=== PATIENT | male | born 1950 | race Caucasian/White ===

== ENCOUNTER 2020-01-06 11:53 | Emergency (ER) | payer MEDICARE ==
[~2020-01-06] VITALS: Ht 177.8 cm; Wt 104.3 kg
--- NOTE | 2020-01-06 13:26 | NUR ---
crow dc'd; 25cc of water removed. dr. gibbs informed
[2020-01-06 13:39] LABS: BASOPHILS % 0.4 % (0.0-1.0); EOSINOPHILS # (AUTO) 0.3 (0.0-0.4); EOSINOPHILS % 2.7 % (0.0-6.0); HEMATOCRIT 41.5 % (38.2-49.6); HEMOGLOBIN 13.7 g/dL (14.0-18.0); LYMPHOCYTES # (AUTO) 1.3 (1.0-3.2); LYMPHOCYTES % 13.4 % (18.0-39.1); MEAN CORPUSCULAR HEMOGLOBIN 28.6 pg (28-32); MEAN CORPUSCULAR VOLUME 86.6 fL (81-99); MONOCYTES # (AUTO) 0.8 (0.2-0.8); MONOCYTES % 8.6 % (4.4-11.3); NEUTROPHILS # (AUTO) 7.3 (2.1-6.9); NEUTROPHILS % 74.3 % (38.7-80.0); PLATELET COUNT 257 x10e3/uL (140-360); RED BLOOD COUNT 4.79 x10e6/uL (4.3-5.7)
[2020-01-06 13:41] LABS: ALANINE AMINOTRANSFERASE 14 IU/L (0-55); ALBUMIN 3.5 g/dL (3.5-5.0); ALBUMIN/GLOBULIN RATIO 1.1 (0.8-2.0); ALKALINE PHOSPHATASE 50 IU/L (40-150); ANION GAP 16.1 mmol/L (8-16); BLOOD UREA NITROGEN 13 mg/dL (7-26); BUN/CREATININE RATIO 14 (6-25); CALCIUM 9.1 mg/dL (8.4-10.2); CARBON DIOXIDE 22 mmol/L (22-29); CHLORIDE 105 mmol/L (98-107); CREATININE, SERUM 0.96 mg/dL (0.72-1.25); EST GLOMERULAR FILTRATION RATE > 60 ML/MIN (60-); GLUCOSE 92 mg/dL (74-118); POTASSIUM 4.1 mmol/L (3.5-5.1); SODIUM 139 mmol/L (136-145)
--- NOTE | 2020-01-06 14:10 | Emergency Department Note ---
History of Present Illnes History of Present Illness Chief Complaint: Genitourinary History of Present Illness This is a 69 year old male c/o urinary retention/inability to urinate x 1 week went to [facility] who placed maria catheter and has went back 4 times for same issue states maria was readjusted 6 times at [facility] states he does not have urologist c/o pain when urinating and states urine comes out very slowly and states he has urinated blood clots. Historian: Patient Arrival Mode: Car Medical Radiation Therapist Required: No Onset (how long ago): week(s) Location: bladder Quality: clogged maria Severity: moderate Onset quality: gradual Duration (how long): day(s) Timing of current episode: intermittent, sporadic Progression: worsening Chronicity: recurrent Relieving factors: none Exacerbating factors: none Associated symptoms: Reports denies other symptoms Treatments prior to arrival: none Past Medical/Family History Physician Review I have reviewed the patient's past medical and family history. Any updates have been documented here. Past Medical History Recent Fever: No Clinical Suspicion of Infectio: No New/Unexplained Change in Ment: No Past Medical History: Hypertension, Hyperlipedemia Other Medical History: enlarged prostate Other Surgery: 2 prostate biopsies Social History Physically hurt or threatened: No Review of Systems Review of Systems Constitutional: Reports no symptoms EENTM: Reports no symptoms Cardiovascular: Reports no symptoms Respiratory: Reports no symptoms Gastrointestinal: Reports no symptoms Genitourinary: Reports no symptoms, Reports hematuria, Reports other (Urinary retention) Musculoskeletal: Reports no symptoms Integumentary: Reports no symptoms Neurological: Reports no symptoms Psychological: Reports no symptoms Endocrine: Reports no symptoms Hematological/Lymphatic: Reports no symptoms Review of other systems: All other systems negative Physical Exam Related Data Allergies: Coded Allergies: No Known Allergies (Unverified , 01/06/20) Triage Vital Signs Vital Signs Date Time Temp Pulse Resp B/P (MAP) Pulse Ox O2 Delivery O2 Flow Rate FiO2 01/06/20 12:19 98.3 69 18 135/79 98 Room Air Vital signs reviewed: Yes Physical Exam CONSTITUTIONAL Constitutional: Present well-developed, Present well-nourished HENT HENT: Present normocephalic, Present atraumatic, Present oropharynx clear/moist, Present nose normal HENT L/R: Present left ext ear normal, Present right ext ear normal EYES Eyes: Reports PERRL, Reports conjunctivae normal NECK Neck: Present ROM normal PULMONARY Pulmonary: Present effort normal, Present breath sounds normal CARDIOVASCULAR Cardiovascular: Present regular rhythm, Present heart sounds normal, Present capillary refill normal, Present normal rate GASTROINTESTINAL Abdominal: Present soft, Present nontender, Present bowel sounds normal GENITOURINARY Genitourinary: Present other (Maria in place with balloon inflated to 25mL. Blood noted in maria tubing) SKIN Skin: Present warm, Present dry MUSCULOSKELETAL Musculoskeletal: Present ROM normal NEUROLOGICAL Neurological: Present alert, Present oriented x 3, Present no gross motor or sensory deficits PSYCHOLOGICAL Psychological: Present mood/affect normal, Present judgement normal Results Laboratory Result Diagram: 01/06/20 1232 01/06/20 1232 Laboratory Laboratory Tests Test 01/06/20 13:23 01/06/20 12:32 White Blood Count 9.76 x10e3/uL (4.8-10.8) Red Blood Count 4.79 x10e6/uL (4.3-5.7) Hemoglobin 13.7 g/dL (14.0-18.0) Hematocrit 41.5 % (38.2-49.6) Mean Corpuscular Volume 86.6 fL (81-99) Mean Corpuscular Hemoglobin 28.6 pg (28-32) Mean Corpuscular Hemoglobin Concent 33.0 g/dL (31-35) Red Cell Distribution Width 13.0 % (11.7-14.4) Platelet Count 257 x10e3/uL (140-360) Neutrophils (%) (Auto) 74.3 % (38.7-80.0) Lymphocytes (%) (Auto) 13.4 % (18.0-39.1) Monocytes (%) (Auto) 8.6 % (4.4-11.3) Eosinophils (%) (Auto) 2.7 % (0.0-6.0) Basophils (%) (Auto) 0.4 % (0.0-1.0) Neutrophils # (Auto) 7.3 (2.1-6.9) Lymphocytes # (Auto) 1.3 (1.0-3.2) Monocytes # (Auto) 0.8 (0.2-0.8) Eosinophils # (Auto) 0.3 (0.0-0.4) Basophils # (Auto) 0.0 (0.0-0.1) Absolute Immature Granulocyte (auto 0.06 x10e3/uL (0-0.1) Sodium Level 139 mmol/L (136-145) Potassium Level 4.1 mmol/L (3.5-5.1) Chloride Level 105 mmol/L (98-107) Carbon Dioxide Level 22 mmol/L (22-29) Anion Gap 16.1 mmol/L (8-16) Blood Urea Nitrogen 13 mg/dL (7-26) Creatinine 0.96 mg/dL (0.72-1.25) Estimat Glomerular Filtration Rate > 60 ML/MIN (60-) BUN/Creatinine Ratio 14 (6-25) Glucose Level 92 mg/dL (74-118) Calcium Level 9.1 mg/dL (8.4-10.2) Total Bilirubin 0.5 mg/dL (0.2-1.2) Aspartate Amino Transf (AST/SGOT) 15 IU/L (5-34) Alanine Aminotransferase (ALT/SGPT) 14 IU/L (0-55) Alkaline Phosphatase 50 IU/L (40-150) Total Protein 6.8 g/dL (6.5-8.1) Albumin 3.5 g/dL (3.5-5.0) Globulin 3.3 g/dL (2.3-3.5) Albumin/Globulin Ratio 1.1 (0.8-2.0) Lab results reviewed: Yes Imaging Imaging results reviewed: Yes Diagnostics Tests Diagnostic test(s) reviewed: Yes Assessment & Plan Medical Decision Making MDM 69 y.o M w/ obstructed urinary catheter. Maria balloon was over inflated and this was removed. He was able to urinate with out difficulty. Exam shows overall well appearing M in NAD, VSS and within acceptable limits. Urine shows some bacteria and RBC's. Will treat as UTI and give Keflex. He will f/u w/ Urology outpatient. Patient states agreement to plan and is appropriate for DC. Reassessment Reassessment time: 14:09 Reassessment Well appearing. NAD Assessment & Plan Final Impression: (1) Obstructed Maria catheter Depart Disposition: HOME, SELF-CARE Last Vital Signs Date Time Temp Pulse Resp B/P (MAP) Pulse Ox O2 Delivery O2 Flow Rate FiO2 01/06/20 12:19 98.3 69 18 135/79 98 Room Air Home Meds Active Scripts Cephalexin Monohydrate (KEFLEX) 500 Mg Capsule, 500 MG PO BID for 10 Days, #20 Prov:KALANI JADE MD 01/06/20 KALANI JADE MD Jan 06, 2020 14:10
[2020-01-06 14:12] LABS: BILIRUBIN,URINE MODERATE (NEGATIVE); CLARITY,URINE CLOUDY (CLEAR); COLOR,URINE AMBER (YELLOW); KETONES,URINE 2+ (NEGATIVE); LEUKOCYTE ESTERASE ,URINE TRACE (NEGATIVE); NITRITE,URINE NEGATIVE (NEGATIVE); PROTEIN,URINE DIPSTICK >=300 (NEGATIVE); URINE UROBILINOGEN 1 mg/dL (0.2 - 1)
[2020-01-06 14:15] LABS: BACTERIA,URINE MODERATE /HPF; RBC,URINE >50 /HPF (0-5)
--- NOTE | 2020-01-06 14:46 | NUR ---
p.v.r. done; no urine
[2020-01-06] MEDS ORDERED: KEFLEX500 MG PO (15:02)
== END 2020-01-06 15:30 | disposition home or self-care (01) ==
LOC: ER 12:25
DX: T83.098A Other mechanical complication of other urinary catheter, initial encounter (principal); R31.9 Hematuria, unspecified; I10 Essential (primary) hypertension; E78.5 Hyperlipidemia, unspecified
CPT/HCPCS: 36415; 80053; 81001; 85025; 87086; 87186; 99284

== ENCOUNTER 2020-01-20 18:23 | Emergency (ER) | payer MEDICARE ==
[~2020-01-20] VITALS: Ht 177.8 cm; Wt 103.0 kg
[~2020-01-20 18:23] MED LIST: KEFLEX500 MG PO
--- NOTE | 2020-01-20 19:18 | Emergency Department Note ---
History of Present Illnes History of Present Illness Chief Complaint: Genitourinary History of Present Illness This is a 70 year old male PRESENTS WITH C/O HEMATURIA FOR PAST 3 TO 4 HOURS, THIS HAS HAPPENED BEFORE IN THE PAST WELL, PT STATES HAS PROSTATE ISSUES AND HIS UROLOGIST IS PLANNING TO DO A PROCEDURE ON HIS PROSTATE SOON.. Historian: Patient Arrival Mode: Car Onset (how long ago): hour(s) (4) Location: PENIS Quality: BLOOD IN URINE, MILD PAIN WITH URINATION Radiation: Reports non-radiation Severity: mild Onset quality: sudden Duration (how long): hour(s) (4) Timing of current episode: constant Chronicity: recurrent Context: Denies recent illness, Denies recent surgery, Denies trauma/injury Relieving factors: none Exacerbating factors: none Associated symptoms: Reports other (MILD DYSURIA) Treatments prior to arrival: none Past Medical/Family History Physician Review I have reviewed the patient's past medical and family history. Any updates have been documented here. Past Medical History Recent Fever: No Clinical Suspicion of Infectio: No New/Unexplained Change in Ment: No Past Medical History: Hypertension, Hyperlipedemia Other Medical History: enlarged prostate Other Surgery: 2 prostate biopsies Social History Smoking Cessation: Never Smoker Alcohol Use: None Any Illegal Drug Use: No Family History Family history of heart diseas: No Review of Systems Review of Systems Constitutional: Reports no symptoms EENTM: Reports no symptoms Cardiovascular: Reports no symptoms Respiratory: Reports no symptoms Gastrointestinal: Reports no symptoms Genitourinary: Reports as per HPI Musculoskeletal: Reports no symptoms Integumentary: Reports no symptoms Neurological: Reports no symptoms Psychological: Reports no symptoms Endocrine: Reports no symptoms Hematological/Lymphatic: Reports no symptoms Physical Exam Related Data Allergies: Coded Allergies: No Known Allergies (Unverified , 01/06/20) Triage Vital Signs Vital Signs Date Time Temp Pulse Resp B/P (MAP) Pulse Ox O2 Delivery O2 Flow Rate FiO2 01/20/20 18:34 98.1 68 16 122/71 99 Room Air Vital signs reviewed: Yes Physical Exam CONSTITUTIONAL Constitutional: Present well-developed, Present well-nourished; Absent distressed HENT HENT: Present normocephalic, Present atraumatic, Present oropharynx clear/moist, Present nose normal HENT L/R: Present left ext ear normal, Present right ext ear normal EYES Eyes: Reports PERRL, Reports conjunctivae normal NECK Neck: Present ROM normal PULMONARY Pulmonary: Present effort normal, Present breath sounds normal CARDIOVASCULAR Cardiovascular: Present regular rhythm, Present heart sounds normal, Present capillary refill normal, Present normal rate GASTROINTESTINAL Abdominal: Present soft, Present nontender, Present bowel sounds normal GENITOURINARY Genitourinary: Present exam deferred SKIN Skin: Present warm, Present dry MUSCULOSKELETAL Musculoskeletal: Present ROM normal NEUROLOGICAL Neurological: Present alert, Present oriented x 3, Present no gross motor or sensory deficits PSYCHOLOGICAL Psychological: Present mood/affect normal, Present judgement normal Results Laboratory Laboratory Laboratory Tests Test 01/20/20 19:45 01/20/20 18:07 White Blood Count 12.32 x10e3/uL (4.8-10.8) Red Blood Count 4.46 x10e6/uL (4.3-5.7) Hemoglobin 12.5 g/dL (14.0-18.0) Hematocrit 38.9 % (38.2-49.6) Mean Corpuscular Volume 87.2 fL (81-99) Mean Corpuscular Hemoglobin 28.0 pg (28-32) Mean Corpuscular Hemoglobin Concent 32.1 g/dL (31-35) Red Cell Distribution Width 13.4 % (11.7-14.4) Platelet Count 245 x10e3/uL (140-360) Neutrophils (%) (Auto) 74.0 % (38.7-80.0) Lymphocytes (%) (Auto) 15.3 % (18.0-39.1) Monocytes (%) (Auto) 7.1 % (4.4-11.3) Eosinophils (%) (Auto) 2.7 % (0.0-6.0) Basophils (%) (Auto) 0.5 % (0.0-1.0) Neutrophils # (Auto) 9.1 (2.1-6.9) Lymphocytes # (Auto) 1.9 (1.0-3.2) Monocytes # (Auto) 0.9 (0.2-0.8) Eosinophils # (Auto) 0.3 (0.0-0.4) Basophils # (Auto) 0.1 (0.0-0.1) Absolute Immature Granulocyte (auto 0.05 x10e3/uL (0-0.1) Sodium Level 139 mmol/L (136-145) Potassium Level 4.1 mmol/L (3.5-5.1) Chloride Level 105 mmol/L (98-107) Carbon Dioxide Level 23 mmol/L (22-29) Anion Gap 15.1 mmol/L (8-16) Blood Urea Nitrogen 14 mg/dL (7-26) Creatinine 0.99 mg/dL (0.72-1.25) Estimat Glomerular Filtration Rate > 60 ML/MIN (60-) BUN/Creatinine Ratio 14 (6-25) Glucose Level 97 mg/dL (74-118) Calcium Level 9.2 mg/dL (8.4-10.2) Urine Color Yellow (YELLOW) Urine Clarity Turbid (CLEAR) Urine pH 5.5 (5 - 7) Urine Specific [place] 1.030 (1.010-1.025) Urine Protein >=300 (NEGATIVE) Urine Glucose (UA) Negative (NEGATIVE) Urine Ketones Negative (NEGATIVE) Urine Blood Large (NEGATIVE) Urine Nitrite Negative (NEGATIVE) Urine Bilirubin Small (NEGATIVE) Urine Urobilinogen 1 mg/dL (0.2 - 1) Urine Leukocyte Esterase Small (NEGATIVE) Urine RBC >50 /HPF (0-5) Urine WBC >50 /HPF (0-5) Urine Epithelial Cells Few /LPF (NONE) Urine Bacteria Few /HPF (NONE) Lab results reviewed: Yes Assessment & Plan Medical Decision Making MDM PT WITH HEMATURIA AND MILD DYSURIA CBC, BMP, UA ORDERED TO EVAL FOR LEUKOCYTOSIS, ANEMIA, ELECTROLYTE ABNORMALITY, RENAL FAILURE, UTI, HEMATURIA PT FOUND TO HAVE UTI ROCEPHIN 1 GRAM IV ORDERED PT DISCHARGED WITH PRESCRIPTION FOR OMNICEF 300 MG PO BID FOR 10 DAYS #20 Assessment & Plan Final Impression: (1) Urinary tract infection in male Depart Disposition: HOME, SELF-CARE Last Vital Signs Date Time Temp Pulse Resp B/P (MAP) Pulse Ox O2 Delivery O2 Flow Rate FiO2 01/20/20 18:34 98.1 68 16 122/71 99 Room Air Home Meds Active Scripts Cephalexin Monohydrate (KEFLEX) 500 Mg Capsule, 500 MG PO BID for 10 Days, #20 Prov:KALANI JADE MD 01/06/20 ELY JHAVERI MD Jan 20, 2020 19:18
--- OUTSIDE RECORDS SUMMARY | 2020-01-20 19:29 | XMS REPORT | Clinical Summary ---
Author Author [facility] Organization [facility] Address Unknown Phone Unavailable Care Team Providers Care Tug Master Name Role Phone Angela Briones Physician PCP [phone] Allergies Comments Active Allergy Reactions Severity Noted Date Pt. States it causes upset stomach Aspirin Nausea Only High 05/27/2010 Medications End Date Status Medication Sig Dispensed Refills Start Date Active Tadalafil (CIALIS) 10 mg One tab 30 tablet 3 0 tabletIndications: BPH orally every 8 associated with nocturia other day.. Active cetirizine (ZYRTEC) 10 mg Take 1 tablet 90 tablet 3 tabletIndications: by mouth 9 Environmental and daily. seasonal allergies Additional Information Patient not taking. Reported on 07/08/2019 2:42 PM Active omeprazole (PRILOSEC) 20 Take 1 90 capsule 3 0 mg delayed release capsule by 9 capsuleIndications: mouth daily. Gastroesophageal reflux disease without esophagitis Active ketoconazole (NIZORAL) 2 Use on scalp 120 mL 3 % shampooIndications: 2-3 0 Seborrheic dermatitis, times/week.. unspecified Active atorvastatin (LIPITOR) 20 Take 1 tablet 90 tablet 3 mg tabletIndications: by mouth at 0 Mixed hyperlipidemia bedtime nightly. Active lisinopriL (PRINIVIL) 5 Take 1 tablet 90 tablet 3 mg tabletIndications: by mouth 0 Essential hypertension daily. Active tamsulosin (FLOMAX) 0.4 Take 1 90 capsule 3 mg extended release capsule by 0 capsuleIndications: BPH mouth daily. associated with nocturia Active finasteride (PROSCAR) 5 Take 1 tablet 90 tablet 3 mg tabletIndications: BPH by mouth 0 associated with nocturia daily. 07/13/2020 Active primidone (MYSOLINE) 50 Take 1 tablet 120 tablet 6 mg tabletIndications: by mouth 4 0 Essential tremor times daily for 210 days Please take 50 mg, and increase weekly by 25 mg up till maximum dose of 250 nightly achieved. Active oxybutynin (DITROPAN) 5 Take 1 tablet 30 tablet 0 mg tabletIndications: by mouth 3 0 Bladder spasms times daily. 02/24/2019 Discontinued (Reorder) omeprazole (PRILOSEC) 20 Take 1 90 capsule 3 1 mg delayed release capsule by 7 capsuleIndications: mouth daily. Gastroesophageal reflux disease without esophagitis 10/21/2019 Discontinued (Reorder) atorvastatin (LIPITOR) 20 Take 1 tablet 90 tablet 3 mg tabletIndications: by mouth at 8 Dyspnea on exertion bedtime nightly. 02/24/2019 Discontinued (Reorder) cetirizine (ZYRTEC) 10 mg Take 1 tablet 90 tablet 1 tabletIndications: by mouth 8 Environmental and daily. seasonal allergies 08/08/2019 Discontinued (Therapy comple jamee) ketoconazole (NIZORAL) 2 apply 30 g 1 0 % topical topically to 8 creamIndications: affected Onychomycosis areas feet once daily. 08/08/2019 Discontinued (Therapy comple jamee) ciprofloxacin HCl (CIPRO) Take 500 mg 0 04/05 500 mg tablet by mouth 2 8 times daily. 10/21/2019 Discontinued (Reorder) lisinopril (PRINIVIL) 5 Take 1 tablet 90 tablet 3 mg tabletIndications: by mouth 9 Essential hypertension daily. 11/14/2019 Discontinued (Therapy comple jamee) polyethylene glycol Add lukewarm 8000 mL 0 09/23 (GOLYTELY) 236-22.74-6.74 drinking 9 -5.86 gram oral water to the solutionIndications: fill pacheco (4 History of adenomatous liters) and polyp of colon shake. Drink as directed by your doctor.. 11/14/2019 Discontinued (Therapy comple jamee) polyethylene glycol drink 2L 8000 mL 0 (GAVILYTE-G) between 9 236-22.74-6.74 -5.86 gram 6pm-8pm oral solution evening before test .drink the other 2L morning of test starting 4 hours before test and finish in 2 hours 07/08/2019 Discontinued (Reorder) tamsulosin (FLOMAX) 0.4 Take 1 90 capsule 3 mg extended release capsule by 9 capsuleIndications: BPH mouth daily. associated with nocturia 07/08/2019 Discontinued (Error) tamsulosin (FLOMAX) 0.4 Take 1 90 capsule 4 202 mg extended release capsule by 0 capsuleIndications: mouth daily. Nocturia 07/08/2019 Discontinued (Error) finasteride (PROSCAR) 5 Take 1 tablet 90 tablet 4 202 mg tabletIndications: by mouth 0 Nocturia daily. 10/21/2019 Discontinued (Reorder) tamsulosin (FLOMAX) 0.4 Take 1 90 capsule 3 202 mg extended release capsule by 0 capsuleIndications: BPH mouth daily. associated with nocturia 10/21/2019 Discontinued (Reorder) finasteride (PROSCAR) 5 Take 1 tablet 90 tablet 3 mg tabletIndications: by mouth 0 Nocturia daily. 11/14/2019 Discontinued (Reorder) predniSONE (DELTASONE) 50 Take 1 tablet 12 tablet 0 202 mg tabletIndications: by mouth 2 0 Chronic pain of left knee times daily for 6 days. 11/14/2019 Discontinued (Reorder) predniSONE (DELTASONE) 50 Take 1 tablet 12 tablet 0 202 mg tabletIndications: by mouth 2 0 Chronic pain of left knee times daily for 6 days. 11/20/2019 predniSONE (DELTASONE) 50 Take 1 tablet 12 tablet 0 202 mg tabletIndications: by mouth 2 0 Chronic pain of left knee times daily for 6 days. 12/16/2019 Discontinued (Dose adjustmen t) primidone (MYSOLINE) 50 Take 1 tablet 30 tablet 6 mg tabletIndications: by mouth at 0 Essential tremor bedtime nightly for 210 days. 12/30/2019 Discontinued (Duplicate Orde r) traMADoL (ULTRAM) 50 mg Take 1 tablet 15 tablet 0 tabletIndications: by mouth 0 Retention of urine, Lower every 6 hours abdominal pain as needed for Pain. 12/30/2019 Discontinued (Alternate ther apy) traMADoL (ULTRAM) 50 mg Take 1 tablet 15 tablet 0 tabletIndications: by mouth 0 Retention of urine, Lower every 6 hours abdominal pain as needed for Pain. Active Problems Problem Noted Date Benign prostatic hyperplasia with urinary frequency 08/08/2019 Nocturia 06/17/2019 Hx: UTI (urinary tract infection) 07/24/2018 Prediabetes 07/24/2018 Dietary counseling 07/24/2018 Positive occult stool blood test 11/29/2017 BMI 33.0-33.9,adult 11/23/2017 Elevated PSA 09/23/2013 Benign essential tremor 10/07/2012 Alcohol dependence 03/12/2012 CHF (congestive heart failure) 06/07/2009 HTN (hypertension) 06/07/2009 Retention of urine Urinary outflow obstruction Bladder spasms Indwelling Lambert catheter present Encounters Care Team Description Date Type Specialty Dee James PA Godoy, Guilherme, MD Hsieh, Alan, ResidentMD Retention of urine 01/19/2020 Office Visit Urology Velia King MD Bladder spasms (Primary Dx); Indwelling Lambert catheter present; Constipation, unspecified constipation type 01/05/2020 Emergency Emergency Medicine Irish Lux MD Urinary retention (Primary Dx) 01/02/2020 Emergency Emergency Medicine Prosper Fuentes MD Urinary outflow obstruction (Primary Dx) ; Lambert catheter problem, sequela; Benign prostatic hyperplasia with urinary frequency 12/31/2019 Emergency Emergency Medicine Joyce Gilbert ResidentMD 12/31/2019 Orders Only Urology Olga Lidia Lion NP Retention of urine (Primary Dx); Problem with Lambert catheter, initial encounter; Lower abdominal pain 12/30/2019 Emergency Emergency Medicine Constance Coppola MD Essential tremor (Primary Dx) 12/16/2019 Office Visit Neurology Jennifer Emery MD 11/27/2019 Hospital Radiology Encounter Jennifer Emery MD Chronic pain of left knee (Primary Dx); Skin lesions of back; Encounter to discuss test results; Dietary counseling for Above / Below Normal BMI; Exercise counseling for Above Normal BMI Only! 11/14/2019 Office Visit Family Practice Jennifer Emery MD 11/14/2019 Orders Only Family Practice Dinah William MD 11/04/2019 Ancillary Radiology Procedure 10/24/2019 Ancillary Radiology Procedure Jarrell Velarde PA Essential hypertension (Primary Dx); Prediabetes; BPH associated with nocturia; Neck mass; Chronic pain of both knees; Mixed hyperlipidemia 10/21/2019 Telephonic Family Practice Encounter Constance Coppola MD NO SHOW ENCOUNTER (Primary Dx) 10/21/2019 Telephonic Neurology Encounter Marylu Fulton RN 10/20/2019 Refill General Surgery Angela Briones, Essential hypertension (Primary Dx); Elevated PSA; BMI 33.0-33.9,adult; Dietary counseling; Prediabetes; Benign prostatic hyperplasia with urinary frequency; Seborrheic dermatitis, unspecified 08/08/2019 Office Visit Family Practice Jesusita Aggarwal PA Nocturia (Primary Dx); Elevated PSA; BPH with obstruction/lower urinary tract symptoms; Gastroesophageal reflux disease without esophagitis; BPH associated with nocturia 07/08/2019 Office Visit Urology Angela Briones Physician Nocturia (Primary Dx); Encounter for vaccination; Dietary counseling for Above / Below Normal BMI; Exercise counseling for Above Normal BMI Only!; Elevated PSA; Essential hypertension; Suprapubic pain; Tremors of nervous system; Mass in neck 06/17/2019 Office Visit [facility] Angela Briones, Physician Medications 02/24/2019 Orders Only [facility] Chante Prather MD 01/23/2019 Anesthesia Gastroenterology Event Angela Briones, Deepthi Gallardo MD 01/23/2019 Hospital Encounter after 01/19/2019 Immunizations Name Administration Dates Next Due Herpes Zoster Vaccine In 03/05/2015 Clinic Influenza Vaccine 03/12/2013, 03/12/2012, , 03/25/2009 Influenza, Injectable, 06/17/2019, 03/09/2017 Quadrivalent Influenza, 05/02/2018 Vaccine<FLUCELVAX>(Multi- Dose) PCV 13 (Pnuemococcal 11/29/2016 Conjugated 13 Valent) PPV 23 Pneumococcal 03/05/2015 Polysaccaride Tdap Tetanus, diphtheria, 11/04/2014 acellular pertussis Vaccine Family History Medical History Relation Name Comments Hypertension Father Stroke Father Cancer Mother Hypertension Other Patient Relation Name Status Comments Father Mother Other Sister Alive 1 Social History Date Tobacco Use Types Packs/Day Years Used Quit: 12/26/2012 Former Smoker Cigarettes Smokeless Tobacco: Never Used Tobacco Cessation: Counseling Given: Yes Comments: trying to quit Drinks/Week oz/Week Comments Alcohol Use 0 Standard drinks or equivalent 0.0 Former smoker--quit 20 13 No Food Insecurity Answer Date Recorded Within the past 12 months, you worried that your Never kashif e 06/27/2018 food would run out before you got money to buy more. Within the past 12 months, the food you bought Never true 06/27/2018 just didn't last and you didn't have mo helen to get more. Sex Assigned at Date Recorded Not on file Industry Job Start Date Occupation Not on file Not on file Not on file Travel End Travel History Travel Start No recent travel history available. Date Recorded COVID-19 Exposure Response 01/05/2020 11:34 AM CDT In the last month, have you been in contact with No / Unsure someone who was confirmed or suspected to have Coronavirus / COVID-19? Last Filed Vital Signs Reading Time Taken Comments Vital Sign 137/75 01/19/2020 8:08 AM CDT Blood Pressure 61 01/19/2020 8:08 AM CDT Pulse 36.5 C (97.7 F) 01/19/2020 8:08 AM CDT Temperature 18 01/19/2020 8:08 AM CDT Respiratory Rate 100% 01/05/2020 7:00 PM CDT Oxygen Saturation - - Inhaled Oxygen Concentration 103.4 kg (227 lb 14.4 oz) 01/19/2020 8:08 AM CDT Weight 175.3 cm (5' 9") 01/19/2020 8:08 AM CDT Height 33.65 01/19/2020 8:08 AM CDT Body Mass Index Plan of Treatment Care Team Description Date Type Specialty Linda Reeder, ResidentMD [address] [place] [address] 03/09/2020 Office Visit Neurology Health Maintenance Due Date Last Done Comments CORONARY ARTERY DISEASE 11/03/2020 11/04/2019, AGE 18 AND UP 06/17/2019, 12/26/2017, Additional history exists Colonoscopy 5yr 01/24/2024 01/23/2019 IMM Pneumococcal Age 65 Completed 11/29/2016, and Up 03/05/2015 Goals Goal Patient Associated Recent Progress Patient-Stat Aut hor Goal Type Problems ed? Eat Healthy Lifestyle No Rebeca Kessler PLACEMENT COORDINATOR Eat Healthy Lifestyle No Rebeca Kessler LVN Reduce pain Lifestyle Yes Rebeca Schroeder, Housemaid Eat Healthy Lifestyle Yes Rebeca Schroeder, Housemaid Procedures Comments Procedure Name Priority Date/Time Associated Diag nosis URINE CULTURE Routine 01/19/2020 Retention of ur ine 10:25 AM CDT CYSTOMETROGRAM, SIMPLE Routine 01/19/2020 Retenti on of urine 10:16 AM CDT BMP POC Routine 01/02/2020 5:59 AM CDT CREATININE POC Routine 01/02/2020 5:59 AM CDT HGB/HCT STAT 12/31/2019 5:36 PM CDT BMP POC Routine 12/31/2019 3:58 PM CDT BMP POC Routine 12/31/2019 3:[address] ABDOMEN AND PELVIS STAT 12/30/2019 Retentio n of urine CONTRAST 7:04 PM CDT BMP POC Routine 12/30/2019 5:06 PM CDT CREATININE POC Routine 12/30/2019 5:05 PM CDT CBC STAT 12/30/2019 4:57 PM CDT LIPASE STAT 12/30/2019 4:57 PM CDT LIVER PROFILE STAT 12/30/2019 4:57 PM CDT CBC/DIFF STAT 12/30/2019 4:57 PM CDT URINALYSIS STAT 12/30/2019 3:09 PM CDT URINALYSIS STAT 12/30/2019 3:09 PM CDT MRI KNEE JOINT W/O WILBUR 11/27/2019 Chronic sienna n of left knee CONTRAST 7:40 AM CDT XRAY KNEES-BILATERAL WT. Routine 11/04/2019 Chron ic pain of both BEARING (AP/LAT/SUN) 11:20 AM CDT knees HEMOGLOBIN A1C Routine 11/04/2019 Prediabetes 10:50 AM CDT PROSTATE SPECIFIC ANTIGEN Routine 11/04/2019 BPH associated with (PSA) 10:50 AM CDT nocturia LIPID PROFILE Routine 11/04/2019 Mixed hyperlipi demia 10:50 AM CDT COMPREHENSIVE METABOLIC Routine 11/04/2019 Essent ial hypertension PANEL 10:50 AM CDT Prediabetes Mixed hyperlipidemia U/S THYROID/NECK Routine 10/24/2019 Neck mass 7:49 AM CDT SIMPLE UROFLOWMETRY (UFR) Routine 07/08/2019 Noct uria (EG, STOP-WATCH FLOW 3:30 PM LABOR RELATIONS REPRESENTATIVE RATE, MECHANICAL UROFLOWMETER) URINE CULTURE Routine 06/17/2019 Nocturia 10:05 AM LABOR RELATIONS REPRESENTATIVE Suprapubic pain HEMOGLOBIN A1C Routine 06/17/2019 Essential hyper tension 10:05 AM LABOR RELATIONS REPRESENTATIVE LIPID PROFILE Routine 06/17/2019 Essential hyper tension 10:05 AM LABOR RELATIONS REPRESENTATIVE VIT D, 25-HYDROXY Routine 06/17/2019 Tremors of n ervous system 10:05 AM LABOR RELATIONS REPRESENTATIVE COMPREHENSIVE METABOLIC Routine 06/17/2019 Elevat ed PSA PANEL 10:05 AM LABOR RELATIONS REPRESENTATIVE THYROID STIMULATING Routine 06/17/2019 Mass in ne ck HORMONE (TSH) 10:05 AM LABOR RELATIONS REPRESENTATIVE PROSTATE SPECIFIC ANTIGEN Routine 06/17/2019 Noct uria (PSA) 10:05 AM LABOR RELATIONS REPRESENTATIVE Elevated PSA URINALYSIS Routine 06/17/2019 Nocturia 10:05 AM LABOR RELATIONS REPRESENTATIVE Suprapubic pain URINALYSIS Routine 06/17/2019 Nocturia 10:05 AM LABOR RELATIONS REPRESENTATIVE Suprapubic pain COLONOSCOPY Routine 01/23/2019 History of meghana omatous 3:07 PM CDT polyp of colon after 01/19/2019 Results * POCT CREATININE POC docked device (01/02/2020 5:59 AM CDT) Only the most recent of 2 results within the time period is included. Creatinine POC 0.8 0.6 - 1.3 mg/dL [facility] GFR, Estimated >90 >=90 mL/min/1.73 m2 [facility] Specimen Blood, venous Performing Organization Address [facility] one Number [facility] [address] [place] [address] LABORATORY * POCT BMP POC docked device (01/02/2020 5:59 AM CDT) Only the most recent of 4 results within the time period is included. Sodium POC 136 136 - 145 mmol/L [facility] Potassium POC 3.9 3.5 - 5.1 mmol/L [facility] Chloride POC 102 98 - 107 mmol/L [facility] TCO2 POC 27 21 - 32 mmol/L [facility] Urea Nitrogen 18 7 - 18 mg/dL [facility] Glucose POC 96 74 - 106 mg/dL [facility] Hemoglobin POC 13.9 12 - 16 g/dL [facility] Hematocrit POC 41.0 37.0 - 47.0 % [facility] Specimen Blood, venous Performing Organization Address [facility] one Number [facility] [address] [place] [address] [phone] LABORATORY * Hgb/Hct (12/31/2019 5:36 PM CDT) Hemoglobin 13.7 (L) 14.0 - 18.0 g/dL [facility] Hematocrit 41.4 40.0 - 54.0 % [facility] Specimen Blood Performing Organization Address [facility] one Number [facility] [address] [place], [place] [id number] * CT ABDOMEN AND PELVIS CONTRAST (12/30/2019 7:04 PM CDT) Specimen Impressions Performed At IMPRESSION: SMS 1. Lambert catheter positioned in the p rostatic urethra. Recommend repositioning. 2. Multiple stones within the bladder lumen. 3. Nonspecific bilateral perinephric fat stranding, likely due to recent passage of stone. No striated nephrograms. 4. Diverticulosis without acute diver ticulitis. 5. Prostatomegaly. If the report is "FINALIZED" it indicat es that the attending/staff radiologist has reviewed the images and agrees with the resident's interpretation. Dictated By: Alexandria Conroy DO, 12/30/19 8:14 PM I have reviewed the study and agree wit h the findings in this report. Signed By: Roxana Perkins MD, 12/30/2019 8 :26 PM Narrative Performed At EXAM: CT Abdomen and Pelvis WITH contrast SMS INDICATION: Abd distension EC Clinical Documentation: "69 year old CM with PMH HTN, CHF, Etoh abuse, BPH presenting for dribbling of urine, burning in urine and supra pubic pain since two days. He reports t hat he has not urinated since last night and is now having supra pubi c pain and nausea. Denies fever, chills, vomiting. Denies any other comp laints.?" COMPARISON: None available TECHNIQUE: Abdomen and pelvis were scan everton utilizing a multidetector helical scanner from the lung base to t he pubic symphysis after administration of IV contrast. Coronal and sagittal reformations were obtained. Routine protocol was performe d. Scan was performed when during portal venous phase. IV CONTRAST: 100 mL of Omnipaque 300 ORAL CONTRAST: None COMPLICATIONS: None RADIATION DOSE: Total DLP: 1062 mGy*cm Estimated effective dose: (DLP x 0.015 x size factor) mSv CTDIvol has been reviewed. It is below the limits set by the Radiation Protocol Committee (RPC). FINDINGS: LINES and TUBES: Lambert catheter tip pos itioned in the prosthetic urethra. LOWER THORAX: Unremarkable HEPATOBILIARY: No focal hepatic lesions. No biliary ductal dilation. GALLBLADDER: No radio-opaque stones or sludge. No wall thickening. SPLEEN: No splenomegaly. PANCREAS: No focal masses or ductal dil atation. Slight fatty atrophy. ADRENALS: No adrenal nodules KIDNEYS/URETERS: Kidneys enhance symmet rically. Bilateral cortical scarring. Nonspecific mild bilateral pe rinephric fat stranding, likely due to recent stone passage. No hydrone phrosis. No solid mass lesions. 3.7 cm simple cyst in the upper pole th e left kidney. Additional subcentimeter hypodensities in the left kidney are too small to characterize. No renal stones. GI TRACT: No abnormal distention, wall thickening, or evidence of bowel obstruction. Diverticulosis without e vidence of acute diverticulitis. Appendix is normal. PELVIC ORGANS/BLADDER: Multiple depende nt layering stones in the distended bladder lumen. The prostate g land is heterogeneous and enlarged. There are multiple prominent pelvic lymph nodes measuring up to 6 mm in short axis, none of which me et criteria for pathologic enlargement. LYMPH NODES: No peritoneal/retroperiton eal lymphadenopathy. VESSELS: Mild atherosclerosis of the ab dominal aorta and its major abdomen and pelvic branches. PERITONEUM / RETROPERITONEUM: No free a ir or fluid. BONES: Moderate degenerative changes of the thoracolumbar spine. Mild grade 1 retrolisthesis of L5 on S1 and L3 on L4. SOFT TISSUES: Unremarkable. Procedure Note Interface, Rad/Mammog In - 12/30/2019 8:31 PM CDT EXAM: CT Abdomen and Pelvis WITH contrast INDICATION: Abd distension EC Clinical Documentation: "69 year old CM with PMH HTN, CHF, Etoh abuse, BPH presenting for dribbling of urine, burning in urine and supra pubic pain since two days. He reports that he has not urinated since last night and is now having supra pubic pain and nausea. Denies fever, chills, vomiting. Denies any other complaints.?" COMPARISON: None available TECHNIQUE: Abdomen and pelvis were scanned utilizing a multidetector helical scanner from the lung base to the pubic symphysis after administration of IV contrast. Coronal and sagittal reformations were obtained. Routine protocol was performed. Scan was performed when during portal venous phase. IV CONTRAST: 100 mL of Omnipaque 300 ORAL CONTRAST: None COMPLICATIONS: None RADIATION DOSE: Total DLP: 1062 mGy*cm Estimated effective dose: (DLP x 0.015 x size factor) mSv CTDIvol has been reviewed. It is below the limits set by the Radiation Protocol Committee (RPC). FINDINGS: LINES and TUBES: Lambert catheter tip positioned in the prosthetic urethra. LOWER THORAX: Unremarkable HEPATOBILIARY: No focal hepatic lesions. No biliary ductal dilation. GALLBLADDER: No radio-opaque stones or sludge. No wall thickening. SPLEEN: No splenomegaly. PANCREAS: No focal masses or ductal dilatation. Slight fatty atrophy. ADRENALS: No adrenal nodules KIDNEYS/URETERS: Kidneys enhance symmetrically. Bilateral cortical scarring. Nonspecific mild bilateral perinephric fat stranding, likely due to recent stone passage. No hydronephrosis. No solid mass lesions. 3.7 cm simple cyst in the upper pole the left kidney. Additional subcentimeter hypodensities in the left kidney are too small to characterize. No renal stones. GI TRACT: No abnormal distention, wall thickening, or evidence of bowel obstruction. Diverticulosis without evidence of acute diverticulitis. Appendix is normal. PELVIC ORGANS/BLADDER: Multiple dependent layering stones in the distended bladder lumen. The prostate gland is heterogeneous and enlarged. There are multiple prominent pelvic lymph nodes measuring up to 6 mm in short axis, none of which meet criteria for pathologic enlargement. LYMPH NODES: No peritoneal/retroperitoneal lymphadenopathy. VESSELS: Mild atherosclerosis of the abdominal aorta and its major abdomen and pelvic branches. PERITONEUM / RETROPERITONEUM: No free air or fluid. BONES: Moderate degenerative changes of the thoracolumbar spine. Mild grade 1 retrolisthesis of L5 on S1 and L3 on L4. SOFT TISSUES: Unremarkable. IMPRESSION IMPRESSION: 1. Lambert catheter positioned in the pro static urethra. Recommend repositioning. 2. Multiple stones within the bladder l umen. 3. Nonspecific bilateral perinephric fa t stranding, likely due to recent passage of stone. No striated nephrograms. 4. Diverticulosis without acute diverti culitis. 5. Prostatomegaly. If the report is "FINALIZED" it indicates that the attending/staff radiologist has reviewed the images and agrees with the resident's interpretation. Dictated By: Alexandria Conroy DO, 12/30/2019 8:14 PM I have reviewed the study and agree with the findings in this report. Signed By: Roxana Perkins MD, 12/30/2019 8:26 PM Performing Organization Address City/State/Zipcode Ph one Number SMS * CBC/Diff (12/30/2019 4:57 PM CDT) WBC 10.4 4.5 - 12.0 K/uL [facility] RBC 4.79 4.60 - 6.20 M/uL [facility] Hemoglobin 14.0 14.0 - 18.0 g/dL [facility] Hematocrit 42.7 40.0 - 54.0 % [facility] MCV 89.1 82.0 - 92.0 fL [facility] MCH 29.2 27.0 - 31.0 pg [facility] MCHC 32.8 32.0 - 36.0 g/dL [facility] RDW 42.6 35.1 - 43.9 fL [facility] Platelet 231 150 - 400 K/uL [facility] Mean Platelet 10.2 9.4 - 12.4 fL [facility] Volume [facility] Percent NRBC 0.0 % [facility] Neutrophil 72.1 (H) 34.0 - 67.9 % [facility] Lymphs 18.2 (L) 21.8 - 50.0 % [facility] Monocytes 8.0 5.3 - 12.0 % [facility] Eos 0.9 0.8 - 5.0 % [facility] Basos 0.4 0.2 - 1.2 % [facility] Immature 0.4 0.0 - 0.5 % [facility] Granulocytes LAB[facility]ATORY Neutrophils 7.54 (H) 1.78 - 5.36 K/uL [facility] (Absolute) LABORATORY Lymphs 1.90 1.32 - 3.57 K/uL [facility] (Absolute) [facility] Monocytes(Absol 0.83 (H) 0.30 - 0.82 K/uL [facility] [place] [facility] Eos (Absolute) 0.09 0.04 - 0.54 K/uL [facility] Baso (Absolute) 0.04 0.01 - 0.08 K/uL [facility] Immature Grans 0.04 (H) 0.00 - 0.03 K/uL [facility] ([facility] Absolute NRBC 0.00 K/uL [facility] Specimen Blood Performing Organization Address City/State/Zipcode Ph one Number [facility] [address] [place] [address] [phone] * Liver Profile (12/30/2019 4:57 PM CDT) Total Protein 6.5 6.0 - 8.3 g/dL [facility] Bilirubin, 0.7 0.2 - 1.2 mg/dL [facility] Total [facility] Alkaline 49 34 - 104 U/L [facility] Phosphatase [facility] AST 17 13 - 39 U/L [facility] Direct 0.1 0.0 - 0.2 mg/dL [facility] Bilirubin [facility] ALT 17 7 - 52 U/L [facility] Albumin 4.1 (L) 4.2 - 5.5 g/dL [facility] Specimen Blood Performing Organization Address [facility] one Number [facility] [address] [place], [place] [phone] * Lipase (12/30/2019 4:57 PM CDT) Lipase 38 11 - 82 U/L [facility] Specimen Blood Performing Organization Address [facility] one Number [facility] [address] [place] [address] * Urinalysis (12/30/2019 3:09 PM CDT) Only the most recent of 2 results within the time period is included. Color Yellow Colorless, Straw, [facility] Yellow [facility] Clarity Clear Clear [facility] Spec [place], 1.015 1.001 - 1.035 [facility] pH, Ur 6.0 5.0 - 8.0 [facility] Protein, Ur Negative Negative mg/dL [facility] Glucose, Ur Negative Negative mg/dL [facility] Ketone, Ur Negative Negative mg/dL [facility] Bilirubin, Ur Negative Negative mg/dL [facility] Nitrite, Ur Negative Negative [facility] Leukocyte Negative Negative mg/dL [facility] Blood, Ur 2+ (A) Negative mg/dL [facility] RBC 45 (H) 0 - 4 /HPF [facility] WBC 1 0 - 5 /HPF [facility] Epithelial Cell <1 <=1 /HPF [facility] Mucous Present (A) None seen /HPF [facility] Urobilinogen, <1.0 <1.0 EU/dL [facility] Specimen Urine Performing Organization Address [facility] one Number [facility] [address] [place] [address] * MRI KNEE JOINT W/O CONTRAST (11/27/2019 7:40 AM CDT) Specimen Impressions Performed At IMPRESSION: SMS 1. Complex tear posterior horn and cori dy medial meniscus with extrusion with moderate medial tibiofemoral gorge rtment degenerative changes and high-grade cartilage loss. 2. Partial tearing of the medial taras ateral ligament. Increased intrasubstance signal within the ACL an d PCL without focal tear. If the report is "FINALIZED" it indicat es that the attending/staff radiologist has reviewed the images and agrees with the resident's interpretation. Dictated By: Josue Chirinos MD, 0 8:05 AM I have reviewed the study and agree wit h the findings in this report. Signed By: Brian Dunn MD, 11/27/2019 9: 40 AM Narrative Performed At EXAM: MRI of the knee without contrast [facility] HISTORY: Left knee pain COMPARISON: Knee radiograph dated 020 TECHNIQUE: Magnetic resonance imaging of the left KNEE was performed WITHOUT injected contrast per department protoc ol. DISCUSSION: Tendons and Ligaments: ACL: Increased signal without foc al tear. PCL: Increased intrasubstance sig nal without focal tear. Collateral Ligaments: Partial tea ring of the medial collateral ligament. The lateral collateral ligame nt complex is intact. Extensor Mechanism: Intact. Iliotibial Band: Intact. Popliteal Tendon: Intact. Menisci: Medial: Complex tear of the pos terior horn and body with extrusion. Lateral: Intact. Joint: Articular Cartilage: Medial Compartment: High- grade cartilage loss. Lateral Compartment: No f ocal defect. Patellofemoral Compartmen t: No focal defect. Fluid: Small joint effusion. Bone: No focal or infiltrative bone marrow re placing abnormality. Degenerative cysts along the medial tibial spine. No acute fracture. Soft tissues: Unremarkable. Procedure Note Interface, Rad/Mammog In - 11/27/2019 9:45 AM CDT EXAM: MRI of the knee without contrast HISTORY: Left knee pain COMPARISON: Knee radiograph dated 11/04/2019 TECHNIQUE: Magnetic resonance imaging of the left KNEE was performed WITHOUT injected contrast per department protocol. DISCUSSION: Tendons and Ligaments: ACL: Increased signal without focal tear. PCL: Increased intrasubstance signal without focal tear. Collateral Ligaments: Partial tearing of the medial collateral ligament. The lateral collateral ligament complex is intact. Extensor Mechanism: Intact. Iliotibial Band: Intact. Popliteal Tendon: Intact. Menisci: Medial: Complex tear of the posterior horn and body with extrusion. Lateral: Intact. Joint: Articular Cartilage: Medial Compartment: High-grade cartilage loss. Lateral Compartment: No focal defect. Patellofemoral Compartment: No focal defect. Fluid: Small joint effusion. Bone: No focal or infiltrative bone marrow replacing abnormality. Degenerative cysts along the medial tibial spine. No acute fracture. Soft tissues: Unremarkable. IMPRESSION IMPRESSION: 1. Complex tear posterior horn and body medial meniscus with extrusion with moderate medial tibiofemoral compartment degenerative changes and high-grade cartilage loss. 2. Partial tearing of the medial collat eral ligament. Increased intrasubstance signal within the ACL and PCL without focal tear. If the report is "FINALIZED" it indicates that the attending/staff radiologist has reviewed the images and agrees with the resident's interpretation. Dictated By: Josue Chirinos MD, 11/27/2019 8:05 AM I have reviewed the study and agree with the findings in this report. Signed By: Brian Dunn MD, 11/27/2019 9:40 AM Performing Organization Address City/State/[facility] Ph one Number SMS * XRAY KNEES-BILATERAL WT. BEARING (AP/LAT/SUN) (11/04/2019 11:20 AM CDT) Specimen Impressions Performed At IMPRESSION: SMS 1. 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 2. Kellgren-Erick grade 3 osteoarthr osis of the left knee medial compartment. Dictated By: Richelle Ribera MD, 11/04/2019 11:13 AM I have reviewed the study and agree wit h the findings in this report. Signed By: Marcell Jones MD, 11/04/2019 11:26 AM Narrative Performed At EXAM: Bilateral knee radiographs, 2 weight-bearing vi ews SMS INDICATION: bilateral knee pain ( Lt> R t) COMPARISON: None available DISCUSSION: Right knee: Mild medial joint space narrowing. Mild medial compartment osteophytosis. No patellofemoral compartment degenerat ayala changes. Left knee: Moderate medial joint space narrowing. Moderate medial compartment osteophytos is. No patellofemoral compartment degenerat ayala changes. No acute fracture or dislocation. Small right knee effusion. The soft tissues are otherwise unremark able. Procedure Note Interface, Rad/Mammog In - 11/04/2019 11:31 AM CDT EXAM: Bilateral knee radiographs, 2 weight-bearing views INDICATION: bilateral knee pain ( Lt> Rt) COMPARISON: None available DISCUSSION: Right knee: Mild medial joint space narrowing. Mild medial compartment osteophytosis. No patellofemoral compartment degenerative changes. Left knee: Moderate medial joint space narrowing. Moderate medial compartment osteophytosis. No patellofemoral compartment degenerative changes. No acute fracture or dislocation. Small right knee effusion. The soft tissues are otherwise unremarkable. IMPRESSION IMPRESSION: 1. Kellgren-Erick grade 2 osteoarthro sis of the right knee medial compartment. 2. Kellgren-Erick grade 3 osteoarthro sis of the left knee medial compartment. Dictated By: Richelle Ribera MD, 11/04/2019 11:13 AM I have reviewed the study and agree with the findings in this report. Signed By: Marcell Jones MD, 11/04/2019 11:26 AM Performing Organization Address [facility] Ph one Number SMS * Hemoglobin A1C (11/04/2019 10:50 AM CDT) Only the most recent of 2 results within the time period is included. Pathologist [facility] Hemoglobin A1c 5.9 4.3 - 6.1 % [facility] Estimated 123 (H) 70 - 110 mg/dL [facility] Average Glucose LAB[facility]ORY Specimen Blood Performing Organization Address [facility] one Number [facility] [address] [place] [address] * Comprehensive Metabolic Panel (11/04/2019 10:50 AM CDT) Only the most recent of 2 results within the time period is included. Pathologist [facility] Sodium 142 136 - 145 mmol/L [facility] Potassium 4.3 3.5 - 5.1 mmol/L [facility] Chloride 107 98 - 107 mmol/L [facility] CO2 26 21 - 31 mmol/L [facility] Glucose 108 70 - 110 mg/dL [facility] Calcium 9.2 8.6 - 10.3 mg/dL [facility] Urea Nitrogen 18.0 7.0 - 25.0 mg/dL [facility] Creatinine 1.0 0.7 - 1.3 mg/dL [facility] Alkaline 57 34 - 104 U/L [facility] Phosphatase [facility] ALT 13 7 - 52 U/L [facility] AST 14 13 - 39 U/L [facility] Bilirubin, 0.7 0.2 - 1.2 mg/dL [facility] Total [facility] Total Protein 6.8 6.0 - 8.3 g/dL [facility] GFR, Estimated 74 (L) >=90 mL/min/1.73 m2 [facility] Albumin 4.0 (L) 4.2 - 5.5 g/dL [facility] Anion Gap 9 5 - 16 mmol/L [facility] Specimen Blood Performing Organization Address [facility] one Number [facility] [address] [place] [address] [phone] * PSA (11/04/2019 10:50 AM CDT) Only the most recent of 2 results within the time period is included. PSA 4.470 (H) <=4.000 ng/mL [facility] Specimen Blood Performing Organization Address [facility] one Number [facility] [address] [place] [address] * Lipid Profile (11/04/2019 10:50 AM CDT) Only the most recent of 2 results within the time period is included. Cholesterol 190.0 <=200.0 mg/dL [facility] Triglyceride 136 <150 mg/dL [facility] HDL 68.0 See Reference Range [facility] Narrative. mg/dL [facility]ATORY LDL 95 <100 mg/dL [facility] Comment: LAB[facility] Optimal: < 100.0 mg/dL Near Optimal: 120-129 mg/dL Borderline: 130-159 mg/dL High: 160-189 mg/dL Very High: >=190 mg/dL Patient Yes [facility] Fasting? LABORATORY Specimen Blood Performing Organization Address [facility] one Number [facility] [address] [place] [address] * U/S THYROID/NECK (10/24/2019 7:49 AM CDT) Specimen Narrative Performed At EXAM: U/S THYROID/NECK SMS INDICATION: a neck mass (under Rt ja w) COMPARISON: None TECHNIQUE: Transverse and sagittal imag es were performed of the right neck in the patient reported area of in terest. FINDINGS/IMPRESSION: The visualized portion of the right sub mandibular gland is normal in echotexture without soft tissue mass or calcification. These subcutaneous fat and musculature are in a normal distribution without mass or fluid collection. No lymphadeno manuel. Dictated By: Osei Suazo MD, 020 7:52 AM I have reviewed the study and agree wit h the findings in this report. Signed By: Linsey Benavidez, 10/24/2019 9 :44 AM Procedure Note Interface, Rad/Mammog In - 10/24/2019 9:49 AM CDT EXAM: U/S THYROID/NECK INDICATION: a neck mass (under Rt jaw) COMPARISON: None TECHNIQUE: Transverse and sagittal images were performed of the right neck in the patient reported area of interest. FINDINGS/IMPRESSION: The visualized portion of the right submandibular gland is normal in echotexture without soft tissue mass or calcification. These subcutaneous fat and musculature are in a normal distribution without mass or fluid collection. No lymphadenopathy. Dictated By: Osei Suazo MD, 10/24/2019 7:52 AM I have reviewed the study and agree with the findings in this report. Signed By: Linsey Benavidez, 10/24/2019 9:44 AM Performing Organization Address [facility] one Number SMS * Vitamin D, 25-Hydroxycalciferol (06/17/2019 10:05 AM LABOR RELATIONS REPRESENTATIVE) Vit D, 30.1 30.0 - 100.0 ng/mL [facility] 25-Hydroxy [facility] Vitamin D Sufficient Sufficient [facility] Interpretation Comment: LAB[facility]ATORY Sufficient: >30.0 Insufficient: 20.0 - 29.9 Deficient: <20.0 Specimen Blood Performing Organization Address [facility] one Number [facility] [address] [place] [address] [phone] * TSH [Thyroid Stimulating Hormone] (06/17/2019 10:05 AM LABOR RELATIONS REPRESENTATIVE) TSH 2.53 0.45 - 5.33 uIU/mL [facility] Specimen Blood Performing Organization Address [facility] one Number [facility] [address] [place] [address] * Urine Culture (06/17/2019 10:05 AM LABOR RELATIONS REPRESENTATIVE) Urine Culture No growth 2 days [facility] Specimen Urine - Clean Catch [place] Performing Organization Address City/State/Zipcode Ph one Number [facility] [address] [place] [address] [phone] * COLONOSCOPY (01/23/2019 3:07 PM CDT) TEXT Patient Name CUCO CRUZ Date of 1950 Record Number [id number] Date/Time of Procedure 01/23/2019, 3:07:00 PM Endoscopist Deepthi Real MD./Fellow Nuria Jurado INDICATIONS FOR EXAMINATION: Polyp of colon. PROCEDURE PERFORMED: Colonoscopy - diagnostic INSTRUMENTS: [id number] LIMITATIONS: None TOLERANCE: Good VISUALIZATION: Good PREP QUALITY: BOSTON BOWEL PREPARATION SCALE (BBPS): Right Colon: 2 Transverse Colon: 3 Left Colon: 3 Total Score: 8 SPECIMEN COLLECTED: No MEDICATIONS: MAC Anesthesia ASA CLASSIFICATION: III ANALGESIA: Anesthesia PROCEDURE TECHNIQUE: Prior to the procedure, a history and physical exam was performed. Patient medications and allergies were reviewed. Informed consent was obtained from the patient after explaining all of the risks, benefits and alternatives to the procedure, which the patient appeared to understand and so stated. Sedation options and risks were discussed with the patient. Patient identification and proposed procedure were verified by the physician and the nurse in the endoscopy suite. Throughout the procedure the patient's level of sedation, blood pressure, pulse and oxygen saturation were monitored continously. After adequate sedation was achieved, a digital rectal exam was performed and the colonoscope was advanced under direct visualization to the proximal ascending colon. The proximal ascending colon was identified by visual landmarks. T he scope was subsequently withdrawn slowly while carefully examining the colonic mucosa for abnormalities. In the rectum, the scope was retroflexed to evaluate for internal hemorrhoids and anorectal pathology. The patient was subsequently transferred to the recovery area in satisfactory condition. FINDINGS: Digital rectal exam was normal. The cecum, ascending, transverse, descending, sigmoid colon, and rectum were normal except extensive severe diverticulosis w/o complications (both ascending and descending colon, More prominent in sigmoid and mild in ascending colon). No polyps were seen but ascending colon prep was not optimal (Dryden Bowel Scale 2). Retroflexion in the rectum showed moderate internal/external hemorrhoids. ENDOSCOPIC DIAGNOSIS: Diverticulosis Internal/external hemorrhoids RECOMMENDATIONS: Follow up in the GI clinic. Avoid constipation.. COMPLICATIONS: None. none ESTIMATED BLOOD LOSS: None BLOOD PRODUCTS ADMINISTERED: none GRAFT/IMPLANT: None TOTAL PROCEDURE TIME: 00:22:14 TOTAL SEDATION TIME: COMMENTS: CPT CODE: [id number] Colonoscopy, flexible; diagnostic, including collection of specimen(s) by brushing or washing, when performed (separate procedur ICD CODE: K63.5 Polyp of colon I was present during the entire viewing portion of the procedure. I personally reviewed the images and report prepared by the resident or fellow and agree with the findings. After the procedure was completed, the patient was taken to the recovery in good condition. This Procedure was electronically signed of on : 01/24/2019 2:39:47 PM By Deepthi Torres Specimen Performing Organization Address City/State/Zipcode Ph one Number SMS after 01/19/2019 Insurance Type Payer Benefit Subscriber ID Effective Phone Address Plan / Dates Group MEDICARE MEDICARE xxxxxxxxxxx 2015-P [id number] [place] [address] [place] [id number] xxxxxxxxx 2017-P [id number] MEDICARE [place], [place] BENEFICIAR [id number] Y Advance Directives Date Inactivated Comments Code Status Date Activated 05/28/2010 12:30 AM Full Code 05/27/2010 12:42 PM
--- OUTSIDE RECORDS SUMMARY | 2020-01-20 19:30 | XMS REPORT | Continuity of Care Document ---
Author Author Formerly [facility] t Organization [facility] Address [address] [place] [address] Phone Unavailable Care Team Providers Care Field Coordinator Name Role Phone NO, PCP PCP Unavailable Jacob ARANA, Dee Attphys Zeina OLSON, Mook Attphys Kale ResidentMD, Jaime Attphys Fernando OLSON, Velia Attphys Jose J OLSON, K Irish Attphys Alfredo OLSON, M Prosper Attphys Vladimir PickardMD, F Joyce Attphys [phone] Ayad MANAGER STYLE, C Olga Lidia Attphys Abdon OLSON, J Constance Attphys Rupert OLSON, H Jennifer Attphys Nataliia OLSON, B Dinah Attphys Prachi PA, Jarrell Attphys Donaldo RN, M Marylu Attphys Unavailable Anselmo Physician, Angela Attphys [phone] Alessia ARANA, Jesusita Attphys Melissa OLSON, A Deepthi Attphys Yamilka OLSON, Chante Attphys Payers Payer Name Policy Type Policy Number Effective Date Expiration Date Reynold ochoa MEDICAREMEDICARE PART A & [id number] [address] xxxxxxxxxxx 2015 00:00:00 [facility] MEDICAIDTP24 QUALIFIED MEDICARE [phone], [place] [address] xxxxxxxxx 2017 00:00:00 [facility] Medicare A & B [id number] 2015 00:00:00 [facility] Problems Condition Name Condition Details Condition Category Status Onset Date Resolution Date Last Treatment Date Treating Clinician Comments Source Benign prostatic hyperplasia with urinary frequency Be nign prostatic hyperplasia with urinary frequency Disease Active 2019-08-08 00:00:00 [facility] Nocturia Nocturia Disease Active 2019-06-17 00:00:00 [facility] Hx: UTI (urinary tract infection) Hx: UTI (urinary tract infecti on) Disease Active 2018-07-24 00:00:00 [facility] Prediabetes Prediabetes Disease Active 2018-07-24 00:00:00 [facility] Dietary counseling Dietary counseling Disease Active 2018-07-24 00:00:0 0 [facility] Positive occult stool blood test Positive occult stool blood lubna t Disease Active 2017-11-29 00:00:00 [facility] BMI 33.0-33.9,adult BMI 33.0-33.9,adult Disease Active 2017-11-23 00:00 :00 [facility] Elevated PSA Elevated PSA Disease Active 2013-09-23 00:00:00 [facility] Benign essential tremor Benign essential tremor Disease Active 2012-10-07 00:00:00 [facility] Alcohol dependence Alcohol dependence Disease Active 2012-03-12 00:00:0 0 [facility] CHF (congestive heart failure) CHF (congestive heart failure) Disea se Active 2009-06-07 00:00:00 [facility] HTN (hypertension) HTN (hypertension) Disease Active 2009-06-07 00:00:0 0 [facility] Obstruction of Lambert catheter Problem Active [facility] Retention of urine Retention of urine Disease Active [facility] Urinary outflow obstruction Urinary outflow obstruction Disease Active [facility] Bladder spasms Bladder spasms Disease Active [facility] Indwelling Lambert catheter present Indwelling Lambert catheter pres ent Disease Active [facility] Allergies, Adverse Reactions, Alerts Allergy Name Allergy Type Status Severity Reaction(s) Onset Date Inacti ve Date Treating Clinician Comments Source Aspirin Propensity to adverse reactions to drug Active Nausea Only 2010-05-27 00:00:00 Pt. States it causes upset [facility] Family History Family Member Diagnosis Comments Start Date Stop Date Source Natural father Hypertension [facility] Natural father [facility] Natural mother [facility] Hy[facility] Social History Social Habit Start Date Stop Date Quantity Comments Source Sex Assigned At Located within [facility] Exposure to SARS-CoV-2 (event) Not sure [facility] Alcohol intake 2019-12-31 00:00:00 2019-12-31 00:00:00 Current non-drinker of alcohol (finding) Replaced By [facility] Food Worry 2018-06-27 00:00:00 2018-06-27 00:00:00 1 [facility] Food Scarcity 2018-06-27 00:00:00 2018-06-27 00:00:00 1 [facility] Alcohol Comment 2015-06-14 00:00:00 2015-06-14 00:00:00 Former s samuel--quit 2012 [facility] History of tobacco use 2012-12-26 00:00:00 Current smoker [facility] Tobacco Comment 2011-03-24 00:00:00 2011-03-24 00:00:00 trying to angie t [facility] Smoking Status Start Date Stop Date Source Former smoker 2019-12-31 00:00:00 2019-12-31 00:00:00 [facility] Medications Ordered Medication Name Filled Medication Name Start Date Stop Da te Current Medication? Ordering Clinician Indication Dosage Frequency Signature (SIG) Comments Components Source Cephalexin Monohydrate (Keflex) 500 Mg CAPSULE Cephale dustin Monohydrate (Keflex) 500 Mg CAPSULE 2020-01-06 15:02:00 Yes 500 Twice A D ay [facility] oxybutynin (DITROPAN) 5 mg tablet 2020-01-05 00:00:00 Ye s Bladder spasms 5mg Take 1 tablet by mouth 3 times daily. [facility] traMADoL (ULTRAM) 50 mg tablet 2019-12-30 00:00:00 2019-12-04 8 00:00:00 No Lower abdominal pain 50mg Take 1 tablet by mo uth every 6 hours as needed for Pain. [facility] traMADoL (ULTRAM) 50 mg tablet 2019-12-30 00:00:00 2019-12-04 8 00:00:00 No Lower abdominal pain 50mg Take 1 tablet by mo uth every 6 hours as needed for Pain. [facility] primidone (MYSOLINE) 50 mg tablet 2019-12-16 00:00:00 2020 23:59:00 Yes Essential tremor 50mg Take 1 tablet b y mouth 4 times daily for 210 days Please take 50 mg, and increase weekly by 25 mg up till maximum dose of 250 nightly achieved. [facility] primidone (MYSOLINE) 50 mg tablet 2019-12-16 00:00:00 2019 00:00:00 No Essential tremor 50mg Take 1 tablet by mouth a t bedtime nightly for 210 days. [facility] predniSONE (DELTASONE) 50 mg tablet 2019-11-14 00:00:0 0 2019-11-20 23:59:00 No Chronic pain of left knee 50mg Q.5D Ta ke 1 tablet by mouth 2 times daily for 6 days. [facility] predniSONE (DELTASONE) 50 mg tablet 2019-11-14 00:00:0 0 2019-11-14 00:00:00 No Chronic pain of left knee 50mg Q.5D Ta ke 1 tablet by mouth 2 times daily for 6 days. [facility] predniSONE (DELTASONE) 50 mg tablet 2019-11-14 00:00:0 0 2019-11-14 00:00:00 No Chronic pain of left knee 50mg Q.5D Ta ke 1 tablet by mouth 2 times daily for 6 days. [facility] atorvastatin (LIPITOR) 20 mg tablet 2019-10-21 00:00:00 Yes Mixed hyperlipidemia 20mg Take 1 tablet by mouth at bedtime nightly. [facility] lisinopriL (PRINIVIL) 5 mg tablet 2019-10-21 00:00:00 Yes Essential hypertension 5mg QD Take 1 tablet by mouth daily. [facility] tamsulosin (FLOMAX) 0.4 mg extended release capsule 10-20 00:00:00 Yes BPH associated with nocturia .4mg QD Take 1 capsule by pollo th daily. [facility] finasteride (PROSCAR) 5 mg tablet 2019-10-21 00:00:00 Yes BPH associated with nocturia 5mg QD Take 1 tablet by mouth daily. [facility] ketoconazole (NIZORAL) 2 % shampoo 2019-08-08 00:00:00 Yes Seborrheic dermatitis, unspecified Use on scalp 2-3 times/week.. [facility] tamsulosin (FLOMAX) 0.4 mg extended release capsule 2019-07-08 00:00:00 2019-10-21 00:00:00 No BPH associated with nocturia .4mg QD Take 1 capsule by mouth daily. [facility] finasteride (PROSCAR) 5 mg tablet 2019-07-08 00:00:00 2019 00:00:00 No Nocturia 5mg QD Take 1 tablet by mouth daily. [facility] tamsulosin (FLOMAX) 0.4 mg extended release capsule 2019-07-08 00:00:00 2019-07-08 00:00:00 No Nocturia .4mg QD Take 1 capsule by m out daily. [facility] finasteride (PROSCAR) 5 mg tablet 2019-07-08 00:00:00 2019 00:00:00 No Nocturia 5mg QD Take 1 tablet by mouth daily. [facility] cetirizine (ZYRTEC) 10 mg tablet 2019-02-24 00:00:00 Yes Environmental and seasonal allergies 10mg QD Take 1 tablet by mouth daily. [facility] omeprazole (PRILOSEC) 20 mg delayed release capsule 02-24 00:00:00 Yes Gastroesophageal reflux disease without esophagitis 20mg QD Take 1 capsule by mouth daily. [facility] tamsulosin (FLOMAX) 0.4 mg extended release capsule 2019-01-14 00:00:00 2019-07-08 00:00:00 No BPH associated with nocturia .4mg QD Take 1 capsule by mouth daily. [facility] polyethylene glycol (GAVILYTE-G) 236-22.74-6.74 -5.86 gram o ral solution 2018-12-13 00:00:00 2019-11-14 00:00:00 No drink 2L between 6pm-8pm evening before test .drink the other 2L morning of test starting 4 hours before test and finish in 2 hours [facility] polyethylene glycol (GOLYTELY) 236-22.74-6.74 -5.86 gram ora l solution 2018-09-23 00:00:00 2019-11-14 00:00:00 No History of adenomatous polyp of colon Add lukewarm drinkin g water to the fill pacheco (4 liters) and shake. Drink as directed by your doctor.. [facility] lisinopril (PRINIVIL) 5 mg tablet 2018-06-10 00:00:00 2019 00:00:00 No Essential hypertension 5mg QD Take 1 tablet by mouth nelda y. [facility] ciprofloxacin HCl (CIPRO) 500 mg tablet 00:00:00 2019-08-08 00:00:00 No 500mg Q.5D Take 500 mg by mouth 2 times da peter. [facility] ketoconazole (NIZORAL) 2 % topical cream 2017-12 00:00:00 2019-08-08 00:00:00 No Onychomycosis apply topic ally to affected areas feet once daily. [facility] Tadalafil (CIALIS) 10 mg tablet 2017-11-23 00:00:00 Yes BPH associated with nocturia One tab orally every other day.. [facility] atorvastatin (LIPITOR) 20 mg tablet 2017-11-23 00:00:0 0 2019-10-21 00:00:00 No Dyspnea on exertion 20mg Take 1 tablet by mouth at be dtime nightly. [facility] cetirizine (ZYRTEC) 10 mg tablet 2017-11-23 00:00:00 2019-02 00:00:00 No Environmental and seasonal allergies 10mg QD Take 1 tablet by mout h daily. [facility] omeprazole (PRILOSEC) 20 mg delayed release capsule 2017-03-09 00:00:00 2019-02-24 00:00:00 No Gastroesophageal reflux dise ase without esophagitis 20mg QD Take 1 capsule by mouth daily. [facility] Immunizations Ordered Immunization Name Filled Immunization Name Date Status Comments Source Influenza, Injectable, Quadrivalent 2019-06-17 00:00:00 Co mpleted [facility] Influenza, Vaccine<FLUCELVAX>(Multi-Dose) 2018-05-02 00:00 :00 Completed [facility] Influenza, Injectable, Quadrivalent 2017-03-09 00:00:00 Co mpleted [facility] PCV 13 (Pnuemococcal Conjugated 13 Valent) 2016-11-29 00:0 0:00 Completed [facility] PPV 23 Pneumococcal Polysaccaride 2015-03-05 00:00:00 Comp leted [facility] Herpes Zoster Vaccine In Clinic 2015-03-05 00:00:00 Comple jamee [facility] Tdap Tetanus, diphtheria, acellular pertussis Vaccine 2014-11-04 00:00:00 Completed [facility] Influenza Vaccine 2013-03-12 00:00:00 Completed [facility] Influenza Vaccine 2012-03-12 00:00:00 Completed [facility] Influenza Vaccine 2011-05-25 00:00:00 Completed [facility] Influenza Vaccine 2009-03-25 00:00:00 [facility] Vital Signs Vital Name Observation Time Observation Value Comments Source Systolic blood pressure 2020-01-19 08:08:00 137 mm[Hg] [facility] Diastolic blood pressure 2020-01-19 08:08:00 75 mm[Hg] [facility] Heart rate 2020-01-19 08:08:00 61 /min [facility] Body temperature 2020-01-19 08:08:00 36.5 Verónica [facility] Respiratory rate 2020-01-19 08:08:00 18 /min [facility] Body height 2020-01-19 08:08:00 175.3 cm [facility] Body weight 2020-01-19 08:08:00 103.375 kg [facility] BMI 2020-01-19 08:08:00 33.65 kg/m2 [facility] Weight 2020-01-06 12:19:00 230 [lb_av] [facility] BMI (Body Mass Index) 2020-01-06 12:19:00 33.0 kg/m2 [facility] Oxygen saturation in Arterial blood by Pulse oximetry 01-04 19:00:00 100 /min [facility] Procedures Procedure Date / Time Performed Performing Clinician Sour e URINE CULTURE 2020-01-19 10:25:00 Mandeep Jackson CYSTOMETROGRAM, SIMPLE 2020-01-19 10:16:48 Mandeep Jackson [facility] CREATININE POC 2020-01-02 05:59:00 Irish Lux BMP POC 2020-01-02 05:59:00 Irish Lux [facility] HGB/HCT 2019-12-31 17:36:00 Luana Amin [facility] BMP POC 2019-12-31 15:58:00 Unknown, Provider Ulysses [facility] BMP POC 2019-12-31 15:55:00 Unknown, Provider Arora [facility] CT ABDOMEN AND PELVIS CONTRAST 2019-12-30 19:04:44 Rena James [facility] BMP POC 2019-12-30 17:06:00 Unknown, Provider [facility] CREATININE POC 2019-12-30 17:05:00 Unknown, Provider [facility] CBC/DIFF 2019-12-30 16:57:00 Dee James [facility] LIVER PROFILE 2019-12-30 16:57:00 Dee James [facility] h LIPASE 2019-12-30 16:57:00 Dee James [facility] CBC 2019-12-30 16:57:00 Dee James [facility] URINALYSIS 2019-12-30 15:09:00 Deyanira Judge [facility] URINALYSIS 2019-12-30 15:09:00 Deyanira Judge [facility] MRI KNEE JOINT W/O CONTRAST 2019-11-27 07:40:35 Jennifer Emery [facility] XRAY KNEES-BILATERAL WT. BEARING (AP/LAT/SUN) 2019-11-04 11: 20:12 ReyJarrell Cruz [facility] COMPREHENSIVE METABOLIC PANEL 2019-11-04 10:50:00 Hansa Velarde [facility] LIPID PROFILE 2019-11-04 10:50:00 LeJarrell Cruz [facility] PROSTATE SPECIFIC ANTIGEN (PSA) 2019-11-04 10:50:00 Jarrell Velarde [facility] HEMOGLOBIN A1C 2019-11-04 10:50:00 Jarrell Velarde [facility] U/S THYROID/NECK 2019-10-24 07:49:19 [facility] SIMPLE UROFLOWMETRY (UFR) (EG, STOP-WATCH FLOW RATE, M [facility]) 2019-07-08 15:30:26 Jesusita Aggarwal [facility] URINALYSIS 2019-06-17 10:05:00 Anselmo Angela Ar[facility] URINALYSIS 2019-06-17 10:05:00 Anselmo Angela [facility] PROSTATE SPECIFIC ANTIGEN (PSA) 2019-06-17 10:05:00 Sandeep Briones [facility] THYROID STIMULATING HORMONE (TSH) 2019-06-17 10:05:00 Anselmo [facility] COMPREHENSIVE METABOLIC PANEL 2019-06-17 10:05[facility], 25-HYDROXY 2019-06-17 10:05:00 [facility] LIPID PROFILE 2019-06-17 10:05:00 [facility] HEMOGLOBIN A1C 2019-06-17 10:05:00 Anselmo Angela [facility] URINE CULTURE 2019-06-17 10:05:00 Anselmo Angela [facility] COLONOSCOPY 2019-01-23 15:07:00 Ayaka Godinez [facility] Rupa mckinnon Plan of Care Planned Activity Planned Date Details Comments Source Future Scheduled Test 2024-01-24 00:00:00 Screening for jed gnant neoplasm of colon (procedure) [code = 492678829] [facility] Future Scheduled Test 2020-11-03 00:00:00 CORONARY ARTERY DI SEASE AGE 18 AND UP [code = CORONARY ARTERY DISEASE AGE 18 AND UP] [facility] Instructions Lambert Catheter Care [facility] Instructions Urinary Tract Infection - Men [facility] Encounters Start Date/Time End Date/Time Encounter Type Admission Type Attendi [facility] Care Department Encounter ID Source 2020-01-06 12:25:00 2020-01-06 15:30:00 Departed Emergency Room [facility] [id number] [facility] 2019-05-30 00:00:00 2019-05-30 00:00:00 Outpatient [facility] [id number] [facility] 2019-01-23 12:01:01 2019-01-23 12:01:01 Outpatient [facility] [id number] [facility] 2019-01-23 00:00:00 2019-01-23 00:00:00 Outpatient [facility] [id number] [facility] 2019-01-23 00:00:00 2019-01-23 00:00:00 Outpatient [facility] [id number] [facility] 2018-12-13 00:00:00 2018-12-13 00:00:00 Outpatient [facility] [id number] [facility] 2018-12-11 07:38:04 2018-12-11 07:38:04 Outpatient [facility] [id number] [facility] 2018-10-22 15:11:24 2018-10-22 15:11:24 Outpatient [facility] [id number] [facility] 2018-10-01 10:58:55 2018-10-01 10:58:55 Outpatient [facility] [id number] [facility] 2018-09-23 09:13:09 2018-09-23 09:13:09 Outpatient [facility] [id number] [facility] 2018-09-19 08:38:44 2018-09-19 08:38:44 Outpatient [facility] [id number] [facility] 2018-09-03 08:28:11 2018-09-03 08:28:11 Outpatient [facility] [id number] [facility] 2018-08-22 13:01:00 2018-08-22 13:01:00 Outpatient [facility] [id number] [facility] 2018-07-24 09:41:30 2018-07-24 09:41:30 Outpatient [facility] [id number] [facility] 2018-07-24 08:45:48 2018-07-24 08:45:48 Outpatient [facility] [id number] [facility] 2018-06-27 09:32:33 2018-06-27 09:32:33 [facility]patient [facility] [id number] [facility] 2018-06-18 00:00:00 2018-06-18 00:00:00 [facility]patient [facility] [id number] [facility] 2018-06-17 00:00:00 2018-06-17 00:00:00 Outpatient [facility] [id number] [facility] 2018-05-07 14:08:33 2018-05-07 14:08:33 [facility]patient [facility] [id number] [facility] 2018-05-02 09:37:34 2018-05-02 09:37:34 [facility]patient [facility] [id number] [facility] 2018-04-29 08:04:53 2018-04-29 08:04:53 [facility]patient [facility] [id number] [facility] 2018-04-29 00:00:00 2018-04-29 00:00:00 [facility]patient [facility] [id number] [facility] 2018-04-23 00:00:00 2018-04-23 00:00:00 [facility]patient [facility] [id number] [facility] 2018-04-03 00:00:00 2018-04-03 00:00:00 [facility]patient [facility] [id number] [facility] 2018-03-29 00:00:00 2018-03-29 00:00:00 [facility]patient [facility] [id number] [facility] 2018-03-21 09:02:03 2018-03-21 09:02:03 Outpatient [facility] [id number] [facility] 2018-03-21 00:00:00 2018-03-21 00:00:00 [facility]patient [facility] [id number] [facility] 2018-03-21 00:00:00 2018-03-21 00:00:00 [facility]patient [facility] [id number] [facility] 2018-03-14 00:00:00 2018-03-14 00:00:00 [facility]patient [facility] [id number] [facility] 2018-03-14 00:00:00 2018-03-14 00:00:00 [facility]patient [facility] [id number] [facility] 2018-03-12 00:00:00 2018-03-12 00:00:00 [facility]patient [facility] [id number] [facility] 2018-03-06 00:00:00 2018-03-06 00:00:00 [facility]patient [facility] [id number] [facility] 2018-02-18 14:02:55 2018-02-18 14:02:55 [facility]patient [facility] [id number] [facility] 2018-02-18 00:00:00 2018-02-18 00:00:00 [facility]patient [facility] [id number] [facility] 2018-02-14 10:13:19 2018-02-14 10:13:19 [facility]patient [facility] [id number] [facility] 2018-02-05 00:00:00 2018-02-05 00:00:00 [facility]patient [facility] [id number] [facility] 2018-02-05 00:00:00 2018-02-05 00:00:00 [facility]patient [facility] [id number] [facility] 2018-01-31 06:55:27 2018-01-31 06:55:27 [facility]patient [facility] [id number] [facility] 2018-01-15 10:32:37 2018-01-15 10:32:37 [facility]patient [facility] [id number] [facility] 2018-01-14 14:56:57 2018-01-14 14:56:57 [facility]patient [facility] [id number] [facility] 2018-01-11 00:00:00 2018-01-11 00:00:00 [facility]patient [facility] [id number] [facility] 2017-12-28 00:00:00 2017-12-28 00:00:00 [facility]patient [facility] [id number] [facility] 2017-12-26 08:39:06 2017-12-26 08:39:06 [facility]patient [facility] [id number] [facility] 2017-12-26 08:32:17 2017-12-26 08:32:17 [facility]patient [facility] [id number] [facility] 2017-12-18 15:12:46 2017-12-18 15:12:46 [facility]patient [facility] [id number] [facility] 2017-11-28 13:13:19 2017-11-28 13:13:19 [facility]patient [facility] [id number] [facility] 2017-11-23 10:18:31 2017-11-23 10:18:31 [facility]patient [facility] [id number] [facility] 2017-11-23 08:50:43 2017-11-23 08:50:43 [facility]patient [facility] [id number] [facility] 2017-08-13 09:05:24 2017-08-13 09:05:24 [facility]patient [facility] [id number] [facility] 2017-05-31 12:37:13 2017-05-31 12:37:13 [facility]patient [facility] [id number] [facility] 2017-05-21 15:10:08 2017-05-21 15:10:08 [facility]patient [facility] [id number] [facility] 2017-05-04 00:00:00 2017-05-04 00:00:00 Outpatient [facility] [id number] [facility] 2017-04-30 09:48:30 2017-04-30 09:48:30 [facility]patient [facility] [id number] [facility] 2017-04-30 08:54:08 2017-04-30 08:54:08 Outpatient [facility] [id number] [facility] 2017-03-14 13:17:32 2017-03-14 13:17:32 [facility]patient [facility] [id number] [facility] 2017-03-09 10:24:34 2017-03-09 10:24:34 [facility]patient [facility] [id number] [facility] 2017-03-09 09:25:00 2017-03-09 09:25:00 Outpatient [facility] [id number] [facility] 2017 14:40:39 2017 14:40:39 [facility]patient [facility] [id number] [facility] 2016-12-27 13:27:36 2016-12-27 13:27:36 [facility]patient [facility] [id number] [facility] 2016-11-29 13:33:22 2016-11-29 13:33:22 [facility]patient [facility] [id number] [facility] 2016-11-14 13:43:16 2016-11-14 13:43:16 [facility]patient [facility] [id number] [facility] Results Test Description Test Time Test Comments Results Result Comments Source Urine color determination 2020-01-06 13:23:00 Test Item Urine Color (test code = 5778-6) XAVIER [facility] [id number] 13:23:00* Test Item Value Reference Range Interpretation Comments Urine Clarity (test code = 37869-2) [facility] Test strip 2020-01-06 13:23:00* Test Item Value Reference Range Interpretation Comments Urine Specific [place] (test code = 5811-5) 1.030 1.010-1.02 5 [facility] measurement by automated test [id number] 13:23:00* Test Item Value Reference Range Interpretation Comments Urine pH (test code = 47742-0) 5.5 5-7 [facility] leukocyte esterase detection by [id number] 13:23:00* Test Item Value Reference Range Interpretation Comments Urine Leukocyte Esterase (test code = 5799-2) TRACE NEGATIVE [facility] nitrite [id number] 13:23:00* Test Item Value Reference Range Interpretation Comments Urine Nitrite (test code = 62099-1) NEGATIVE NEGATIVE [facility] protein measurement by test strip (mass/volume)2020-01-06 13:23:00* Test Item Value Reference Range Interpretation Comments Urine Protein (test code = 5804-0) >=300 NEGATIVE [facility] glucose [id number] 13:23:00* Test Item Value Reference Range Interpretation Comments Urine Glucose (UA) (test code = 2349-9) NEGATIVE NEGATIVE [facility] ketones detection by automated test [id number] 13:23:00* Test Item Value Reference Range Interpretation Comments Urine Ketones (test code = 86403-8) 2+ NEGATIVE [facility] urobilinogen measurement by test strip (mass/volume)2020-01-06 13:23:00* Test Item Value Reference Range Interpretation Comments Urine Urobilinogen (test code = 51497-5) 1 0.2-1 [facility] total bilirubin measurement (mass/volume)2020-01-06 13:23:00* Test Item Value Reference Range Interpretation Comments Urine Bilirubin (test code = 1978-6) MODERATE NEGATIVE [facility] Clinic[facility] erythrocytes [id number] 13:23:00* Test Item Value Reference Range Interpretation Comments Urine Blood (test code = 39030-4) LARGE NEGATIVE [facility] ClinicAutom[facility] urine sediment leukocyte count by microscopy (number/high power field)2020-01-06 13:23:00* Test Item Value Reference Range Interpretation Comments Urine WBC (test code = 5821-4) 6-10 0-5 [facility] ClinicErythrocytes detection in urine sediment by light gudtbdwows5560-49-72 13:23:00* Test Item Value Reference Range Interpretation Comments Urine RBC (test code = 86879-7) >50 0-5 [facility] ClinicBacteria detection in urine sediment by light evyudvcgzy0827-68-44 13:23:00* Test Item Value Reference Range Interpretation Comments Urine Bacteria (test code = 92143-5) MODERATE NONE [facility] ClinicEpithelial cells detection in urine sediment by light rhtkgkkdvp4393-68-82 13:23:00* Test Item Value Reference Range Interpretation Comments Urine Epithelial Cells (test code = 68292-1) NONE NONE [facility] ClinicBlood leukocytes automated count (number/volume)2020-01-06 12:32:00* Test Item Value Reference Range Interpretation Comments White Blood Count (test code = 6690-2) 9.76 4.8-10.8 [facility] ClinicBlood erythrocytes automated count (number/volume)2020-01-06 12:32:00* Test Item Value Reference Range Interpretation Comments Red Blood Count (test code = 789-8) 4.79 4.3-5.7 [facility] ClinicBlood hemoglobin measurement (moles/volume)2020-01-06 12:32:00* Test Item Value Reference Range Interpretation Comments Hemoglobin (test code = 28119-9) 13.7 14.0-18.0 [facility] ClinicAutomated blood hematocrit (volume fraction)2020-01-06 12:32:00* Test Item Value Reference Range Interpretation Comments Hematocrit (test code = 4544-3) 41.5 38.2-49.6 [facility] ClinicAutomated erythrocyte mean corpuscular nzpdne2094-45-94 12:32:00* Test Item Value Reference Range Interpretation Comments Mean Corpuscular Volume (test code = 787-2) 86.6 81-99 [facility] ClinicAutomated erythrocyte mean corpuscular hemoglobin (mass per erythrocyte)2020-01-06 12:32:00* Test Item Value Reference Range Interpretation Comments Mean Corpuscular Hemoglobin (test code = 785-6) 28.6 28-32 [facility] ClinicAutomated erythrocyte mean corpuscular hemoglobin concentration measurement (mass/volume)2020-01-06 12:32:00* Test Item Value Reference Range Interpretation Comments Mean Corpuscular Hemoglobin Concent (test code = 786-4) 33.0 31-35 [facility] ClinicRDW FfaWc-Pmu0001-55-04 12:32:00* Test Item Value Reference Range Interpretation Comments Red Cell Distribution Width (test code = 08590-4) 13.0 11.7 -14.4 [facility] ClinicAutomated blood platelet count (count/volume)2020-01-06 12:32:00* Test Item Value Reference Range Interpretation Comments Platelet Count (test code = 777-3) 257 140-360 [facility] ClinicAutomated blood segmented neutrophil count as percentage of total rhibfeyffe6796-51-18 12:32:00* Test Item Value Reference Range Interpretation Comments Neutrophils (%) (Auto) (test code = 15325-1) 74.3 38.7-80.0 [facility] ClinicAutomated blood lymphocyte count as percentage ot total dnprwirabc7698-15-87 12:32:00* Test Item Value Reference Range Interpretation Comments Lymphocytes (%) (Auto) (test code = 736-9) 13.4 18.0-39.1 [facility] ClinicAutomated blood monocyte count as percentage of total nbehomlzbl0657-46-48 12:32:00* Test Item Value Reference Range Interpretation Comments Monocytes (%) (Auto) (test code = 5905-5) 8.6 4.4-11.3 [facility] ClinicAutomated blood eosinophil count as percentage of total orieiyngzq8614-84-77 12:32:00* Test Item Value Reference Range Interpretation Comments Eosinophils (%) (Auto) (test code = 713-8) 2.7 0.0-6.0 [facility] ClinicAutomated blood basophil count as percentage of total jwjbzwwmum9341-53-05 12:32:00* Test Item Value Reference Range Interpretation Comments Basophils (%) (Auto) (test code = 706-2) 0.4 0.0-1.0 [facility] ClinicFluoroscopic procedure less than one hour glgxxage5512-39-45 12:32:00* Test Item Value Reference Range Interpretation Comments IM GRANULOCYTES % (test code = IM GRANULOCYTES %) 0.6 0.0- 1.0 [facility] ClinicAutomated blood neutrophil count 2020-01-06 12:32:00* Test Item Value Reference Range Interpretation Comments Neutrophils # (Auto) (test code = 751-8) 7.3 2.1-6.9 [facility] ClinicBlood lymphocytes count (number/volume) 2020-01-06 12:32:00* Test Item Value Reference Range Interpretation Comments Lymphocytes # (Auto) (test code = 43848-8) 1.3 1.0-3.2 [facility] ClinicBlood monocytes automated count (number/volume)2020-01-06 12:32:00* Test Item Value Reference Range Interpretation Comments Monocytes # (Auto) (test code = 742-7) 0.8 0.2-0.8 [facility] ClinicAutomated blood eosinophil count 2020-01-06 12:32:00* Test Item Value Reference Range Interpretation Comments Eosinophils # (Auto) (test code = 711-2) 0.3 0.0-0.4 [facility] ClinicAutomated blood basophil count (count/volume)2020-01-06 12:32:00* Test Item Value Reference Range Interpretation Comments Basophils # (Auto) (test code = 704-7) 0.0 0.0-0.1 [facility] ClinicFluoroscopic procedure less than one hour mssqzyrg8316-50-62 12:32:00* Test Item Value Reference Range Interpretation Comments Absolute Immature Granulocyte (auto (lubna t code = Absolute Immature Granulocyte (auto) 0.06 0-0.1 [facility] sodium measurement (moles/volume)2020-01-06 12:32:00* Test Item Value Reference Range Interpretation Comments Sodium Level (test code = 2951-2) 139 136-145 [facility] potassium measurement (moles/volume)2020-01-06 12:32:00* Test Item Value Reference Range Interpretation Comments Potassium Level (test code = 2823-3) 4.1 3.5-5.1 [facility] chloride measurement (moles/volume)2020-01-06 12:32:00* Test Item Value Reference Range Interpretation Comments Chloride Level (test code = 2075-0) 105 98-107 [facility] plasma carbon dioxide, total measurement (moles/volume)2020-01-06 12:32:00* Test Item Value Reference Range Interpretation Comments Carbon Dioxide Level (test code = 2028-9) 22 22-29 [facility] plasma anion xjq8970-46-33 12:32:00* Test Item Value Reference Range Interpretation Comments Anion Gap (test code = 33199-2) 16.1 8-16 [facility] urea nitrogen measurement (mass/volume)2020-01-06 12:32:00* Test Item Value Reference Range Interpretation Comments Blood Urea Nitrogen (test code = 3094-0) 13 7-26 [facility] creatinine measurement (mass/volume)2020-01-06 12:32:00* Test Item Value Reference Range Interpretation Comments Creatinine (test code = 2160-0) 0.96 0.72-1.25 [facility] plasma urea nitrogen/creatinine mass rjgrr5775-21-18 12:32:00* Test Item Value Reference Range Interpretation Comments BUN/Creatinine Ratio (test code = 3097-3) 14 6- [facility] ClinicEstimated glomerular filtration rate (GFR) znokxszbfqxzs8780-40-24 12:32:00* Test Item Value Reference Range Interpretation Comments Estimat Glomerular Filtration Rate (test code = 797843608) > 60 >60 Ranges were taken from the National Kidney Disease Education Program and the [facility] [employer] literature.Reference ranges:60 or greater: Glxorn52-21 ( for 3 consecutive months): Chronic kidney disease 15 or less: Kidney failureFalls Community Hospital and ClinicGlucose giemcqzshsr0127-85-17 12:32:00* Test Item Value Reference Range Interpretation Comments Glucose Level (test code = GFX3233) 92 74-118 [facility] calcium measurement (mass/volume)2020-01-06 12:32:00* Test Item Value Reference Range Interpretation Comments Calcium Level (test code = 77061-5) 9.1 8.4-10.2 [facility] total bilirubin measurement (mass/volume)2020-01-06 12:32:00* Test Item Value Reference Range Interpretation Comments Total Bilirubin (test code = 1975-2) 0.5 0.2-1.2 [facility] ClinicFluoroscopic procedure less than one hour rtbejupq5020-58-24 12:32:00* Test Item Value Reference Range Interpretation Comments Aspartate Amino Transf (AST/SGOT) (test code = Aspartate Amino Transf (AST/SGOT)) 15 5-34 [facility]rum [facility] plasma alanine aminotransferase measurement (enzymatic activity/volume)2020-01-06 12:32:00* Test Item Value Reference Range Interpretation Comments Alanine Aminotransferase (ALT/SGPT) (test code = 1742-6) 14 0-55 [facility] protein measurement (mass/volume)2020-01-06 12:32:00* Test Item Value Reference Range Interpretation Comments Total Protein (test code = 2885-2) 6.8 6.5-8.1 [facility] albumin measurement (mass/volume)2020-01-06 12:32:00* Test Item Value Reference Range Interpretation Comments Albumin (test code = 1751-7) 3.5 3.5-5.0 [facility] ClinicPlasma globulin measurement (mass/volume) 2020-01-06 12:32:00* Test Item Value Reference Range Interpretation Comments Globulin (test code = 43997-1) 3.3 2.3-3.5 [facility] albumin/globulin mass okipr9444-05-22 12:32:00* Test Item Value Reference Range Interpretation Comments Albumin/Globulin Ratio (test code = 1759-0) 1.1 0.8-2.0 [facility] plasma alkaline phosphatase measurement (enzymatic activity/volume)2020-01-06 12:32:00* Test Item Value Reference Range Interpretation Comments Alkaline Phosphatase (test code = 6768-6) 50 40-150 [facility] ClinicPOCT BMP POC docked ndqgij8809-90-13 06:08:00* Test Item Value Reference Range Interpretation Comments Sodium POC (test code = 02472850) 136 mmol/L 136-145 Potassium POC (test code = 91101838) 3.9 mmol/L 3.5-5.1 Chloride POC (test code = 50650731) 102 mmol/L 98-107 TCO2 POC (test code = 04392883) 27 mmol/L 21-32 Urea Nitrogen POC (test code = 21724148) 18 mg/dL 7-18 Glucose POC (test code = 63561175) 96 mg/dL 74-106 Hemoglobin POC (test code = 64496070) 13.9 g/dL 12-16 Hematocrit POC (test code = 61835026) 41.0 % 37-47 Lab Interpretation (test code = 91451-3) Normal [facility] CREATININE POC docked hsqkbj0292-69-31 06:06:00* Test Item Value Reference Range Interpretation Comments Creatinine POC (test code = 53318902) 0.8 mg/dL 0.6-1.3 GFR, Estimated (test code = 70556347) >90 >=90 mL/min/1.73 m2 Lab Interpretation (test code = 42530-4) [facility]39[facility]63 17:56:00* Test Item Value Reference Range Interpretation Comments Hemoglobin (test code = 718-7) 13.7 g/dL 14-18 L Hematocrit (test code = 4544-3) 41.4 % 40-54 Lab Interpretation (test code = 52873-5) Abnormal [facility] ABDOMEN AND PELVIS [id number] 20:26:42IMPRESSION: 1. Lambert catheter positioned in the prostatic urethra. Recommendrepositioning.2. Multiple stones within the bladder lumen.3. Nonspecific bilateral perinephric fat stranding, likely due torecent passage of stone. No striated nephrograms.4. Diverticulosis without acute diverticulitis. 5. Prostatomegaly. If the report is "FINALIZED" it indicates that the attending/staffradiologist has reviewed the images and agrees with the resident'sinterpretation. Dictated By: Alexandria Conroy DO, 12/30/2019 8:14 PM I have reviewed the study and agree with the findings in this report. Signed By: Roxana Perkins MD, 12/30/2019 8:26 PM Interface, Rad/Mammog In - 12/30/2019 8:31 PM CDTEXAM: CT Abdomen and Pelvis WITH contrast INDICATION: Abd distension EC Clinical Documentation: "69 year old CM with PMH HTN, CHF, Etohabuse, BPH presenting for dribbling of urine, burning in urine and suprapubic pain since two days. He reports that he has not urinated sincelast night and is now having supra pubic pain and nausea. Denies fever,chills, vomiting. Denies any other complaints.?"COMPARISON: None available TECHNIQUE: A bdomen and pelvis were scanned utilizing a multidetectorhelical scanner from the lung base to the pubic symphysis afteradministration of IV contrast. Coronal and sagittal reformations wereobtained. Routine protocol was performed. Scan was p erformed when duringportal venous phase. IV CONTRAST: 100 mL of Omnipaqu e 300 ORAL CONTRAST: None COMPLICATIONS: NoneRADIATION DOSE: Total DLP: 1062 mGy*cm Estimated effective dose: (DLP x 0.015 x size factor) mSv CTDIvol has been reviewed. It is below the limits set by theRadiation P rotocol Committee (RPC).FINDINGS:LINES and TUBES: Lambert catheter tip positioned in the prostheticurethra.LOWER THORAX: UnremarkableHEPATOBILIARY: No focal hepatic lesions. No biliary ductaldilation. GALLBLADDER: No radio-opaque stones or sludge. No wall thickening.SPLEEN: No splenomegaly. PANCREAS: No focal mass es or ductal dilatation. Slight fatty atrophy.ADRENALS: No adrenal nodules KI DNEYS/URETERS: Kidneys enhance symmetrically. Bilateral corticalscarring. Nonspe cific mild bilateral perinephric fat stranding, likelydue to recent stone passag e. No hydronephrosis. No solid mass lesions.3.7 cm simple cyst in the upper pole the left kidney. Additionalsubcentimeter hypodensities in the left kidney are t oo small tocharacterize. No renal stones.GI TRACT: No abnormal distention, wall thickening, or evidence of bowelobstruction. Diverticulosis without evidence of acute diverticulitis. Appendix is normal.PELVIC ORGANS/BLADDER: Multiple depend ent layering stones in thedistended bladder lumen. The prostate gland is heterog eneous andenlarged. There are multiple prominent pelvic lymph nodes measuring up to 6 mm in short axis, none of which meet criteria for pathologicenlargement.LYM PH NODES: No peritoneal/retroperitoneal lymphadenopathy.VESSELS: Mild atheroscle rosis of the abdominal aorta and its majorabdomen and pelvic branches.PERITONEUM / RETROPERITONEUM: No free air or fluid.BONES: Moderate degenerative changes of the thoracolumbar spine. Mildgrade 1 retrolisthesis of L5 on S1 and L3 on L4.SO FT TISSUES: Unremarkable. IMPRESSIONIMPRESSION: 1. Lambert catheter po sitioned in the prostatic urethra. Recommendrepositioning.2. Multiple stones wi thin the bladder lumen.3. Nonspecific bilateral perinephric fat stranding, like ly due torecent passage of stone. No striated nephrograms.4. Diverticulosis wi thout acute diverticulitis. 5. Prostatomegaly.If the report is "FINALIZED" it i ndicates that the attending/staffradiologist has reviewed the images and agrees with the resident'sinterpretation.Dictated By: Alexandria Conroy DO, 12/30/2019 8:14 PMI have reviewed the study and agree with the findings in this report.Signed B y: Roxana Perkins MD, 12/30/2019 8:26 PMZebulon KqtkffEklwhz4588-77-25 17:42:00* Test Item Value Reference Range Interpretation Comments Lipase (test code = 81539167) 38 U/L 11-82 Lab Interpretation (test code = 56103-9) [facility]erton[facility] Vsushal2900-65-90 17:42:00* Test Item Value Reference Range Interpretation Comments Bilirubin, Total (test code = 2885-2) 0.7 mg/dL 0.2-1.2 Alkaline Phosphatase (test code = 29459954) 49 U/L 34-104 AST (test code = 89431779) 17 U/L 13-39 Direct Bilirubin (test code = 1968-7) 0.1 mg/dL 0-0.2 ALT (test code = 97693952) 17 U/L 7-52 Albumin (test code = 75273-1) 4.1 g/dL 4.2-5.5 L Lab Interpretation (test code = 92472-6) Abnormal [facility]ertonCBC/Urwg5551-26-42 17:21:00* Test Item Value Reference Range Interpretation Comments WBC (test code = 6690-2) 10.4 K/uL 4.5-12 RBC (test code = 789-8) 4.79 4.60- 6.20 M/uL Hemoglobin (test code = 718-7) 14.0 g/dL 14-18 Hematocrit (test code = 4544-3) 42.7 % 40-54 MCV (test code = 787-2) 89.1 fL 82-92 MCH (test code = 785-6) 29.2 pg 27-31 MCHC (test code = 786-4) 32.8 g/dL 32-36 RDW (test code = 91099-6) 42.6 fL 35.1-43.9 Platelet (test code = 777-3) 231 K/uL 150-400 Mean Platelet Volume (test code = 35609-0) 10.2 fL 9.4-12.4 Percent NRBC (test code = 31419688) 0.0 % Neutrophil (test code = 770-8) 72.1 % 34-67.9 H Lymphs (test code = 736-9) 18.2 % 21.8-50 L Monocytes (test code = 5905-5) 8.0 % 5.3-12 Eos (test code = 713-8) 0.9 % 0.8-5 Basos (test code = 706-2) 0.4 % 0.2-1.2 Immature Granulocytes (test code = 47146931) 0.4 % 0-0.5 Neutrophils (Absolute) (test code = 11452890) 7.54 K/uL 1.78-5.3 6 H Lymphs (Absolute) (test code = 14200855) 1.90 K/uL 1.32-3.57 Monocytes(Absolute) (test code = 34049830) 0.83 K/uL 0.3-0.82 H Eos (Absolute) (test code = 43187454) 0.09 K/uL 0.04-0.54 Baso (Absolute) (test code = 09815744) 0.04 K/uL 0.01-0.08 Immature Grans (Abs) (test code = 57210014) 0.04 K/uL 0-0.03 H Absolute NRBC (test code = 43585779) 0.00 K/uL Lab Interpretation (test code = 05161-0) Abnormal [facility] EbrfigYgsrdccced1771-62-01 16:08:00* Test Item Value Reference Range Interpretation Comments Color (test code = 82950477) Yellow Colorless, Straw, Yellow Clarity (test code = 60800613) Clear Clear Spec [place], Ur (test code = 59633535) 1.015 1.001-1.035 pH, Ur (test code = 52440036) 6.0 5.0-8.0 Protein, Ur (test code = 29508658) Negative Negative mg/dL Glucose, Ur (test code = 15389363) Negative Negative mg/dL Ketone, Ur (test code = 32470620) Negative Negative mg/dL Bilirubin, Ur (test code = 23548958) Negative Negative mg/dL Nitrite, Ur (test code = 22916966) Negative Negative Leukocyte (test code = 42747119) Negative Negative mg/dL Blood, Ur (test code = 98283780) 2+ Negative mg/dL A RBC (test code = 70238082) 45 0- 4 /HPF H WBC (test code = 23166394) 1 0- 5 /HPF Epithelial Cell (test code = 49855729) <1 <=1 /HPF Mucous (test code = 35378245) Present None seen /HPF A Urobilinogen, Ur (test code = 28226828) <1.0 <1.0 EU/dL Lab Interpretation (test code = 30303-9) Abnormal [facility] KNEE JOINT W/O AOAXISNI5251-38-87 09:40:03IMPRESSION: 1. Complex tear posterior horn and body medial meniscus with extrusionwith moderate medial tibiofemoral compartment degenerative changes andhigh-grade cartilage loss.2. Partial tearing of the medial collateral ligament. Incre asedintrasubstance signal within the ACL and PCL without focal tear. If the rep ort is "FINALIZED" it indicates that the attending/staffradiologist has reviewed the images and agrees with the resident'sinterpretation. Dictated By: Josue jones MD, 11/27/2019 8:05 AM I have reviewed the study and agree with the findings in this report. Signed By: Brian Dunn MD, 11/27/2019 9:40 AM Interface, Jonathan/Gorge oh In - 11/27/2019 9:45 AM CDTEXAM: MRI of the knee without contrastHISTORY: L eft knee painCOMPARISON: Knee radiograph dated 11/04/2019TECHNIQUE:Magnetic resona nce imaging of the left KNEE was performed WITHOUTinjected contrast per departmd nt protocol. DISCUSSION: Tendons and Ligaments: ACL: Increased signal withou t focal tear. PCL: Increased intrasubstance signal without focal tear. C ollateral Ligaments: Partial tearing of the medial collateralligament. The later al collateral ligament complex is intact. Extensor Mechanism: Intact. Il iotibial Band: Intact. Popliteal Tendon: Intact.Menisci: Medial: Comp pavel tear of the posterior horn and body withextrusion. Lateral: Intact.Join t: Articular Cartilage: Medial Compartment: High-grade c artilage loss. Lateral Compartment: No focal defect. Patellofe moral Compartment: No focal defect. Fluid: Small joint effusion.Bone:No foca l or infiltrative bone marrow replacing abnormality. Degenerativecysts along the medial tibial spine.No acute fracture.Soft tissues:Unremarkable.IMPRESSIONIMPRE SSION: 1. Complex tear posterior horn and body medial meniscus with extrusionwi th moderate medial tibiofemoral compartment degenerative changes andhigh-grade c artilage loss.2. Partial tearing of the medial collateral ligament. Increasedin trasubstance signal within the ACL and PCL without focal tear.If the report is " FINALIZED" it indicates that the attending/staffradiologist has reviewed the rd ges and agrees with the resident'sinterpretation.Dictated By: Josue Chirinos MD, 11/27/2019 8:05 AMI have reviewed the study and agree with the findings in this r eport.Signed By: Brian Dunn MD, 11/27/2019 9:40 [facility] BEAR[facility] (AP/LAT/SUN)2019-11-04 11:26:48IMPRESSION: 1. 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 Kellgren- Erick grade 3 osteoarthrosis of the left knee medialcompartment. Dictated By: Richelle Ribera MD, 11/04/2019 11:13 AM I have reviewed the study and agree with the findings in this report. Signed By: Marcell Jones MD, 11/04/2019 11:26 AM Interface, Rad/Mammog In - 11/04/2019 11:31 AM CDTEXAM: Bilateral knee radiographs, 2 weight-bearing views INDICATION: bilateral knee pain ( Lt> Rt)COMPARISON: None availableDISCUSSION: Right knee: Mild medial joint space n arrowing.Mild medial compartment osteophytosis.No patellofemoral compartment deg enerative changes. Left knee: Moderate medial joint space narrowing.Moderate med ial compartment osteophytosis.No patellofemoral compartment degenerative changes . No acute fracture or dislocation.Small right knee effusion.The soft tissues ar e otherwise unremarkable.IMPRESSIONIMPRESSION: 1. Kellgren-Erick grade 2 oste oarthrosis of the right knee medialcompartment.2. Kellgren-Erick grade 3 oste oarthrosis of the left knee medialcompartment.Dictated By: Richelle Ribera MD, 2019 11:13 AMI have reviewed the study and agree with the findings in this repor t.Signed By: Marcell Jones MD, 11/04/2019 11:26 [facility]K 2019-10-24 09:44:54Interface, Rad/Mammog In - 10/24/2019 9:49 AM CDTEXAM: U/S THYROID/NECKINDICATION: a neck mass (under Rt jaw) COMPARISON: NoneTECHNIQUE: Transverse and sagittal images were performed of the rightneck in the patient reported area of interest.FINDINGS/IMPRESSION: The visualized portion of the right submandibular gland is normal inechotexture without soft tissue mass or calcification. Thesesubcutaneous fat and musculature are in a normal distribution withoutmass or fluid collection. No lymphadenopathy.Dictated By: Osei Suazo MD, 10/24/2019 7:52 AMI have reviewed the study and agree with the findings in this report.Signed By: Linsey Benavidez, 10/24/2019 9:44 [facility] HospitalUrine Fozcahk4269-73-11 10:34:00* Test Item Value Reference Range Interpretation Comments Urine Culture (test code = 630-4) No growth 2 days [facility]ertonVitamin D, 37-Mjsskufrkibyoeypr6028-39-15 11:56:00* Test Item Value Reference Range Interpretation Comments Vit D, 25-Hydroxy (test code = 63626466) 30.1 ng/mL 30-100 Vitamin D Interpretation (test code = 91756161) Sufficient Suffic ient Sufficient: >30.0Insufficient: 20.0 - 29.9Deficient: <20.0 Lab Interpretation (test code = 54195-0) Normal [facility]TS [Thyroid Stimulating Hormone]2019-06-17 16:07:00* Test Item Value Reference Range Interpretation Comments TSH (test code = 90784232) 2.53 0.45- 5.33 uIU/mL Lab Interpretation (test code = 57786-3) Normal [facility]
[2020-01-20 19:47] LABS: CLARITY,URINE TURBID (CLEAR); COLOR,URINE YELLOW (YELLOW); KETONES,URINE NEGATIVE (NEGATIVE); LEUKOCYTE ESTERASE ,URINE SMALL (NEGATIVE); NITRITE,URINE NEGATIVE (NEGATIVE); PROTEIN,URINE DIPSTICK >=300 (NEGATIVE); URINE UROBILINOGEN 1 mg/dL (0.2 - 1)
[2020-01-20 19:48] LABS: BILIRUBIN,URINE SMALL (NEGATIVE)
--- NOTE | 2020-01-20 19:54 | NUR ---
bladder scan performed x 2 per md request. 78cc and 89cc noted on bladder scan.
[2020-01-20 19:57] LABS: BACTERIA,URINE FEW /HPF; EPITHELIAL CELLS,URINE FEW /LPF; RBC,URINE >50 /HPF (0-5); WBC,URINE (MAN) >50 /HPF (0-5)
[2020-01-20 19:58] LABS: BASOPHILS # (AUTO) 0.1 (0.0-0.1); BASOPHILS % 0.5 % (0.0-1.0); EOSINOPHILS # (AUTO) 0.3 (0.0-0.4); EOSINOPHILS % 2.7 % (0.0-6.0); HEMATOCRIT 38.9 % (38.2-49.6); HEMOGLOBIN 12.5 g/dL (14.0-18.0); LYMPHOCYTES # (AUTO) 1.9 (1.0-3.2); LYMPHOCYTES % 15.3 % (18.0-39.1); MEAN CORPUSCULAR HGB CONC 32.1 g/dL (31-35); MEAN CORPUSCULAR VOLUME 87.2 fL (81-99); MONOCYTES # (AUTO) 0.9 (0.2-0.8); MONOCYTES % 7.1 % (4.4-11.3); NEUTROPHILS # (AUTO) 9.1 (2.1-6.9); PLATELET COUNT 245 x10e3/uL (140-360); RED BLOOD COUNT 4.46 x10e6/uL (4.3-5.7); RED CELL DISTRIBUTION WIDTH 13.4 % (11.7-14.4)
[2020-01-20 20:13] LABS: ANION GAP 15.1 mmol/L (8-16); BLOOD UREA NITROGEN 14 mg/dL (7-26); BUN/CREATININE RATIO 14 (6-25); CALCIUM 9.2 mg/dL (8.4-10.2); CARBON DIOXIDE 23 mmol/L (22-29); CHLORIDE 105 mmol/L (98-107); CREATININE, SERUM 0.99 mg/dL (0.72-1.25); EST GLOMERULAR FILTRATION RATE > 60 ML/MIN (60-); GLUCOSE 97 mg/dL (74-118); POTASSIUM 4.1 mmol/L (3.5-5.1); SODIUM 139 mmol/L (136-145)
[2020-01-20] MEDS ORDERED: CEFTRIAXONE SOD 1 GM/NS 50 ML 50 ML IV ONE (20:15)
[2020-01-20 21:16] VITALS: BP 133/76
== END 2020-01-20 21:50 | disposition home or self-care (01) ==
LOC: ER 19:15
DX: N39.0 Urinary tract infection, site not specified (principal); R31.9 Hematuria, unspecified; R30.0 Dysuria; I10 Essential (primary) hypertension; E78.5 Hyperlipidemia, unspecified
CPT/HCPCS: 36415; 80048; 81001; 85025; 87086; 87186; 99284; J0696

== ENCOUNTER 2020-04-27 17:38 | Emergency (ER) | payer MEDICARE ==
[~2020-04-27] VITALS: Ht 177.8 cm; Wt 104.3 kg
[2020-04-27 18:29] LABS: BILIRUBIN,URINE SMALL (NEGATIVE); CLARITY,URINE CLOUDY (CLEAR); COLOR,URINE STRAW (YELLOW); KETONES,URINE 2+ (NEGATIVE); LEUKOCYTE ESTERASE ,URINE SMALL (NEGATIVE); NITRITE,URINE NEGATIVE (NEGATIVE); PROTEIN,URINE DIPSTICK >=300 (NEGATIVE); URINE UROBILINOGEN 1 mg/dL (0.2 - 1)
[2020-04-27 18:42] LABS: BACTERIA,URINE MODERATE /HPF; RBC,URINE 21-50 /HPF (0-5)
--- NOTE | 2020-04-27 18:54 | Emergency Department Note ---
History of Present Illnes History of Present Illness Chief Complaint: Genitourinary History of Present Illness This is a 70 year old male in via POV for evaluation of possible UTI, pt states that he has recurrent UTI's and was recently treated a week ago with Augmentin, pt c/o burning sensation from his urethra all the way to his bladder, urinary urgency also reported, pain is relieved by resting but worse when ambulating and when patient starts having the urgency to urinate. HE STATES THESE SYMPTOMS HAVE BEEN OCCURRING FOR OVER A YEAR . 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 Any updates have been documented here. Past Medical History Recent Fever: No Clinical Suspicion of Infectio: No New/Unexplained Change in Ment: No Past Medical History: Hypertension, Hyperlipedemia Other Medical History: enlarged prostate Other Surgery: 2 prostate biopsies Social History Smoking Cessation: Never Smoker Alcohol Use: None Physically hurt or threatened: No Family History Family history of heart diseas: No Review of Systems Review of Systems Constitutional: Reports no symptoms EENTM: Reports no symptoms Cardiovascular: Reports no symptoms Respiratory: Reports no symptoms Gastrointestinal: Reports no symptoms Genitourinary: Reports as per HPI Musculoskeletal: Reports no symptoms Integumentary: Reports no symptoms Neurological: Reports no symptoms Psychological: Reports no symptoms Endocrine: Reports no symptoms Hematological/Lymphatic: Reports no symptoms Physical Exam Related Data Allergies: Coded Allergies: aspirin (Verified Allergy, Unknown, 04/27/20) Triage Vital Signs Vital Signs Date Time Temp Pulse Resp B/P (MAP) Pulse Ox O2 Delivery O2 Flow Rate FiO2 04/27/20 17:46 98.9 62 18 143/75 100 Room Air Vital signs reviewed: Yes Physical Exam CONSTITUTIONAL Constitutional: Present well-developed, Present well-nourished HENT HENT: Present normocephalic, Present atraumatic, Present oropharynx clear/moist, Present nose normal HENT L/R: Present left ext ear normal, Present right ext ear normal EYES Eyes: Reports PERRL, Reports conjunctivae normal NECK Neck: Present ROM normal PULMONARY Pulmonary: Present effort normal, Present breath sounds normal CARDIOVASCULAR Cardiovascular: Present regular rhythm, Present heart sounds normal, Present capillary refill normal, Present normal rate GASTROINTESTINAL Abdominal: Present soft, Present nontender, Present bowel sounds normal GENITOURINARY Genitourinary: Present exam deferred SKIN Skin: Present warm, Present dry MUSCULOSKELETAL Musculoskeletal: Present ROM normal NEUROLOGICAL Neurological: Present alert, Present oriented x 3, Present no gross motor or sensory deficits PSYCHOLOGICAL Psychological: Present mood/affect normal, Present judgement normal Results Laboratory Laboratory Laboratory Tests Test 04/27/20 17:49 Urine Color Straw (YELLOW) Urine Clarity Cloudy (CLEAR) Urine pH 5.5 (5 - 7) Urine Specific Collins >=1.030 (1.010-1.025) Urine Protein >=300 (NEGATIVE) Urine Glucose (UA) Negative (NEGATIVE) Urine Ketones 2+ (NEGATIVE) Urine Blood Large (NEGATIVE) Urine Nitrite Negative (NEGATIVE) Urine Bilirubin Small (NEGATIVE) Urine Urobilinogen 1 mg/dL (0.2 - 1) Urine Leukocyte Esterase Small (NEGATIVE) Urine RBC 21-50 /HPF (0-5) Urine WBC 6-10 /HPF (0-5) Urine Epithelial Cells None /LPF (NONE) Urine Bacteria Moderate /HPF (NONE) Lab results reviewed: Yes Assessment & Plan Medical Decision Making MDM PT WITH UTI SYMPTOMS AND RECURRENT UTI'S UA ORDERED TO EVAL FOR UTI Assessment & Plan Final Impression: (1) Urinary tract infection in male Depart Disposition: HOME, SELF-CARE Last Vital Signs Date Time Temp Pulse Resp B/P (MAP) Pulse Ox O2 Delivery O2 Flow Rate FiO2 04/27/20 17:46 98.9 62 18 143/75 100 Room Air Home Meds Active Scripts Cephalexin Monohydrate (KEFLEX) 500 Mg Capsule, 500 MG PO BID for 10 Days, #20 Prov:KALANI JADE MD 01/06/20 ELY JHAVERI MD Apr 27, 2020 18:54
--- NOTE | 2020-04-27 19:17 | NUR ---
Bedside shift report and care hand off given to ADAM Ibrahim.
--- OUTSIDE RECORDS SUMMARY | 2020-04-27 19:28 | XMS REPORT | Continuity of Care Document ---
Author Author [facility] t Organization [facility] Address [address] [place] [address] Phone Unavailable Care Team Providers Care Sanitor Name Role Phone NO, PCP PCP Unavailable Gabriella ResidentMD, Greg Attphys [phone] Vladimir ResidentMD, F Joyce Attphys [phone] Zeina OLSON, Mook Attphys Anselmo Physician, Angela Attphys [phone] Deyvi ResidentMD, G Micah Attphys [phone] Jacob PA, Dee Attphys Kale ResidentMD, Jaime Attphys Fernando OLSON, Velia Attphys Jose J OLSON, Jesus Alberto Coburn Attphys Alfredo OLSON, M Prosper Attphys Ayad PAINTINGS CONSERVATOR, C Olga Lidia Attphys Abdon OLSON, J Constance Attphys Rupert OLSON, H Jennifer Attphys Nataliia OLSON, B Dinah Attphys Prachi ARANA, Jarrell Attphys Donaldo RN, M Marylu Attphys Unavailable Alessia PA, Jesusita Attphys Payers Payer Name Policy Type Policy Number Effective Date Expiration Date Ignacio ochoa MEDICAREMEDICARE PART A & [id number]/ [id number] [address] xxxxxxxxxxx 2015 00:00:00 [facility] MEDICAIDTP24 QUALIFIED MEDICARE [id number] [address] xxxxxxxxx 2017 00:00:00 [facility] Medicare A & B [id number] 2015 00:00:00 [facility] Problems Condition Name Condition Details Condition Category Status Onset Date Resolution Date Last Treatment Date Treating Clinician Comments Source Benign prostatic hyperplasia with urinary frequency Be nign prostatic hyperplasia with urinary frequency Disease Active 2019-08-08 00:00:00 [facility] Nocturia Nocturia Disease Active 2019-06-17 00:00:00 [facility] Hx: UTI (urinary tract infection) Hx: UTI (urinary tract infecti on) Disease Active 2018-07-24 00:00:00 [facility] Prediabetes Prediabetes Disease Active 2018-07-24 00:00:00 [facility] Dietary counseling Dietary counseling Disease Active 2018-07-24 00:00:0 0 [facility] Positive occult stool blood test Positive occult stool blood lubna t Disease Active 2017-11-29 00:00:00 [facility] BMI 33.0-33.9,adult BMI 33.0-33.9,adult Disease Active 2017-11-23 00:00 :00 [facility] Elevated PSA Elevated PSA Disease Active 2013-09-23 00:00:00 [facility] Benign essential tremor Benign essential tremor Disease Active 2012-10-07 00:00:00 [facility] Alcohol dependence Alcohol dependence Disease Active 2012-03-12 00:00:0 0 [facility] CHF (congestive heart failure) CHF (congestive heart failure) Disea se Active 2009-06-07 00:00:00 [facility] HTN (hypertension) HTN (hypertension) Disease Active 2009-06-07 00:00:0 0 [facility] Obstruction of Lambert catheter Problem Active [facility] Retention of urine Retention of urine Disease Active [facility] Urinary outflow obstruction Urinary outflow obstruction Disease Active [facility] Bladder spasms Bladder spasms Disease Active [facility] Indwelling Lambert catheter present Indwelling Lambert catheter pres ent Disease Active [facility] Allergies, Adverse Reactions, Alerts Allergy Name Allergy Type Status Severity Reaction(s) Onset Date Inacti ve Date Treating Clinician Comments Source Aspirin Propensity to adverse reactions to drug Active Nausea Only 2010-05-27 00:00:00 Pt. States it causes upset stoma [facility] Family History Family Member Diagnosis Comments Start Date Stop Date Source Natural father Hypertension [facility] Natural [facility] Natural mother Cancer [facility] Other Hypert[facility] Social History Social Habit Start Date Stop Date Quantity Comments Source Sex Assigned At [facility] Exposure to SARS-CoV-2 (event) Not sure [facility] Alcohol intake 2020-04-19 00:00:00 2020-04-19 00:00:00 Current non-drinker of alcohol (finding) [facility] Food Worry 2018-06-27 00:00:00 2018-06-27 00:00:00 1 [facility] Food Scarcity 2018-06-27 00:00:00 2018-06-27 00:00:00 1 [facility] Alcohol Comment 2015-06-14 00:00:00 2015-06-14 00:00:00 Former ignacio baker--quit 2012 [facility] History of tobacco use 2012-12-26 00:00:00 Current smoker [facility] Tobacco Comment 2011-03-24 00:00:00 2011-03-24 00:00:00 trying to angie t [facility] Smoking Status Start Date Stop Date Source Former smoker 2020-04-19 00:00:00 2020-04-19 00:00:00 [facility] Medications Ordered Medication Name Filled Medication Name Start Date Stop Da te Current Medication? Ordering Clinician Indication Dosage Frequency Signature (SIG) Comments Components Source ALLERGY RELIEF, CETIRIZINE, 10 mg tablet 2020-04-16 00:00:00 Yes Environmental and seasonal allergies Take 1 tablet by mout h once daily [facility] amoxicillin-clavulanate (AUGMENTIN) 875-125 mg per tablet 2020-04-09 00:00:00 2020-04-19 23:59:00 No Benign prostatic hyp erplasia with lower urinary tract symptoms, symptom details unspecified 1{tbl} Q.5D Ta ke 1 tablet by mouth 2 times daily for 10 days START 1 WEEK PRIOR TO PROCEDURE. [facility] ketoconazole (NIZORAL) 2 % shampoo 2020-03-22 00:00:00 Yes Seborrheic dermatitis, unspecified USE ON SCALP 2 TO 3 TIMES PER WEEK . [facility] Cephalexin Monohydrate (Keflex) 500 Mg CAPSULE Cephale dustin Monohydrate (Keflex) 500 Mg CAPSULE 2020-01-06 15:02:00 Yes 500 Twice A D ay [facility] oxybutynin (DITROPAN) 5 mg tablet 2020-01-05 00:00:00 Ye s Bladder spasms 5mg Take 1 tablet by mouth 3 times daily. [facility] traMADoL (ULTRAM) 50 mg tablet 2019-12-30 00:00:00 2019-12-04 8 00:00:00 No Lower abdominal pain 50mg Take 1 tablet by mo uth every 6 hours as needed for Pain. [facility] traMADoL (ULTRAM) 50 mg tablet 2019-12-30 00:00:00 2019-12-04 8 00:00:00 No Lower abdominal pain 50mg Take 1 tablet by mo uth every 6 hours as needed for Pain. [facility] primidone (MYSOLINE) 50 mg tablet 2019-12-16 00:00:00 2020 23:59:00 No Essential tremor 50mg Take 1 tablet b y mouth 4 times daily for 210 days Please take 50 mg, and increase weekly by 25 mg up till maximum dose of 250 nightly achieved. [facility] primidone (MYSOLINE) 50 mg tablet 2019-12-16 00:00:00 2019 00:00:00 No Essential tremor 50mg Take 1 tablet by mouth a t bedtime nightly for 210 days. [facility] predniSONE (DELTASONE) 50 mg tablet 2019-11-14 00:00:0 0 2019-11-20 23:59:00 No Chronic pain of left knee 50mg Q.5D Ta ke 1 tablet by mouth 2 times daily for 6 days. [facility] predniSONE (DELTASONE) 50 mg tablet 2019-11-14 00:00:0 0 2019-11-14 00:00:00 No Chronic pain of left knee 50mg Q.5D Ta ke 1 tablet by mouth 2 times daily for 6 days. [facility] predniSONE (DELTASONE) 50 mg tablet 2019-11-14 00:00:0 0 2019-11-14 00:00:00 No Chronic pain of left knee 50mg Q.5D Ta ke 1 tablet by mouth 2 times daily for 6 days. [facility] atorvastatin (LIPITOR) 20 mg tablet 2019-10-21 00:00:00 Yes Mixed hyperlipidemia 20mg Take 1 tablet by mouth at bedtime nightly. [facility] lisinopriL (PRINIVIL) 5 mg tablet 2019-10-21 00:00:00 Yes Essential hypertension 5mg QD Take 1 tablet by mouth daily. [facility] tamsulosin (FLOMAX) 0.4 mg extended release capsule 10-20 00:00:00 Yes BPH associated with nocturia .4mg QD Take 1 capsule by pollo th daily. [facility] finasteride (PROSCAR) 5 mg tablet 2019-10-21 00:00:00 Yes BPH associated with nocturia 5mg QD Take 1 tablet by mouth daily. [facility] ketoconazole (NIZORAL) 2 % shampoo 2019-08-08 00:00:00 00:00:00 No Seborrheic dermatitis, unspecified Use on scalp 2- 3 times/week.. [facility] tamsulosin (FLOMAX) 0.4 mg extended release capsule 2019-07-08 00:00:00 2019-10-21 00:00:00 No BPH associated with nocturia .4mg QD Take 1 capsule by mouth daily. [facility] finasteride (PROSCAR) 5 mg tablet 2019-07-08 00:00:00 2019 00:00:00 No Nocturia 5mg QD Take 1 tablet by mouth daily. [facility] tamsulosin (FLOMAX) 0.4 mg extended release capsule 2019-07-08 00:00:00 2019-07-08 00:00:00 No Nocturia .4mg QD Take 1 capsule by m outh daily. [facility] finasteride (PROSCAR) 5 mg tablet 2019-07-08 00:00:00 2019 00:00:00 No Nocturia 5mg QD Take 1 tablet by mouth daily. [facility] omeprazole (PRILOSEC) 20 mg delayed release capsule 02-24 00:00:00 Yes Gastroesophageal reflux disease without esophagitis 20mg QD Take 1 capsule by mouth daily. [facility] cetirizine (ZYRTEC) 10 mg tablet 2019-02-24 00:00:00 2020-04 00:00:00 No Environmental and seasonal allergies 10mg QD Take 1 tablet by mout h daily. [facility] tamsulosin (FLOMAX) 0.4 mg extended release capsule 2019-01-14 00:00:00 2019-07-08 00:00:00 No BPH associated with nocturia .4mg QD Take 1 capsule by mouth daily. [facility] polyethylene glycol (GAVILYTE-G) 236-22.74-6.74 -5.86 gram o ral solution 2018-12-13 00:00:00 2019-11-14 00:00:00 No drink 2L between 6pm-8pm evening before test .drink the other 2L morning of test starting 4 hours before test and finish in 2 hours [facility] polyethylene glycol (GOLYTELY) 236-22.74-6.74 -5.86 gram ora l solution 2018-09-23 00:00:00 2019-11-14 00:00:00 No History of adenomatous polyp of colon Add lukewarm drinkin g water to the fill pacheco (4 liters) and shake. Drink as directed by your doctor.. [facility] lisinopril (PRINIVIL) 5 mg tablet 2018-06-10 00:00:00 2019 00:00:00 No Essential hypertension 5mg QD Take 1 tablet by mouth nelda virgen [facility] ciprofloxacin HCl (CIPRO) 500 mg tablet 00:00:00 2019-08-08 00:00:00 No 500mg Q.5D Take 500 mg by mouth 2 times da peter. [facility] ketoconazole (NIZORAL) 2 % topical cream 2017-12 00:00:00 2019-08-08 00:00:00 No Onychomycosis apply topic ally to affected areas feet once daily. [facility] Tadalafil (CIALIS) 10 mg tablet 2017-11-23 00:00:00 Yes BPH associated with nocturia One tab orally every other day.. [facility] atorvastatin (LIPITOR) 20 mg tablet 2017-11-23 00:00:0 0 2019-10-21 00:00:00 No Dyspnea on exertion 20mg Take 1 tablet by mouth at be dtime nightly. [facility] Immunizations Ordered Immunization Name Filled Immunization Name Date Status Comments Source Influenza, Injectable, Quadrivalent 2019-06-17 00:00:00 Co mpleted [facility] Influenza, Vaccine<FLUCELVAX>(Multi-Dose) 2018-05-02 00:00 :00 Completed [facility] Influenza, Injectable, Quadrivalent 2017-03-09 00:00:00 Co mpleted [facility] PCV 13 (Pnuemococcal Conjugated 13 Valent) 2016-11-29 00:0 0:00 Completed [facility] PPV 23 Pneumococcal Polysaccaride 2015-03-05 00:00:00 Comp leted [facility] Herpes Zoster Vaccine In Clinic 2015-03-05 00:00:00 Alex jamee [facility] Tdap Tetanus, diphtheria, acellular pertussis Vaccine 2014-11-04 00:00:00 Completed [facility] Influenza Vaccine 2013-03-12 00:00:00 Completed [facility] Influenza Vaccine 2012-03-12 00:00:00 Completed [facility] Influenza Vaccine 2011-05-25 00:00:00 [facility] Influenza Vaccine 2009-03-25 00:00:00 [facility] Vital Signs Vital Name Observation Time Observation Value Comments Source Systolic blood pressure 2020-04-19 08:29:00 132 mm[Hg] [facility] Diastolic blood pressure 2020-04-19 08:29:00 74 mm[Hg] [facility] Heart rate 2020-04-19 08:29:00 60 /min [facility] Body temperature 2020-04-19 08:29:00 36.56 Verónica [facility] Respiratory rate 2020-04-19 08:29:00 18 /min [facility] Body height 2020-04-19 08:29:00 175.3 cm [facility] Body weight 2020-04-19 08:29:00 104.781 kg [facility] BMI 2020-04-19 08:29:00 34.11 kg/m2 [facility] Weight 2020-01-06 12:19:00 230 [lb_av] [facility] BMI (Body Mass Index) 2020-01-06 12:19:00 33.0 kg/m2 [facility] Oxygen saturation in Arterial blood by Pulse oximetry 2020-0 8-03 19:00:00 100 /min [facility] Procedures Procedure Date / Time Performed Performing Clinician Sourc e POC URINE DIPSTICK, WITHOUT MICRO 2020-04-19 00:00:00 Mabel Gilbert [facility] URINE CULTURE 2020-04-05 09:30:00 Joyce Gilbert [facility] URINE CULTURE 2020-01-19 10:25:00 Mandeep Jackson [facility] h CYSTOMETROGRAM, SIMPLE 2020-01-19 10:16:48 Mandeep Jackson [facility] CREATININE POC 2020-01-02 05:59:00 Irish Lux [facility] h BMP POC 2020-01-02 05:59:00 Irish Lux [facility] h HGB/HCT 2019-12-31 17:36:00 Luana Amin [facility] Health BMP POC 2019-12-31 15:58:00 Unknown, Provider [facility] BMP POC 2019-12-31 15:55:00 Unknown, Provider [facility] CT ABDOMEN AND PELVIS CONTRAST 2019-12-30 19:04:44 Rena James [facility] BMP POC 2019-12-30 17:06:00 Unknown, Provider [facility] CREATININE POC 2019-12-30 17:05:00 Unknown, Provider [facility] CBC/DIFF 2019-12-30 16:57:00 Dee James [facility] LIVER PROFILE 2019-12-30 16:57:00 Dee James [facility] h LIPASE 2019-12-30 16:57:00 Dee James [facility] h CBC 2019-12-30 16:57:00 Dee James [facility] URINALYSIS 2019-12-30 15:09:00 Deyanira Judge [facility] URINALYSIS 2019-12-30 15:09:00 Deyanira Judge [facility] MRI KNEE JOINT W/O CONTRAST 2019-11-27 07:40:35 Jennifer Emery [facility] XRAY KNEES-BILATERAL WT. BEARING (AP/LAT/SUN) 2019-11-04 11: 20:12 Jarrell Velarde [facility] COMPREHENSIVE METABOLIC PANEL 2019-11-04 10:50:00 Hansa Velarde [facility] LIPID PROFILE 2019-11-04 10:50:00 Jarrell Velarde [facility] PROSTATE SPECIFIC ANTIGEN (PSA) 2019-11-04 10:50:00 Jarrell Velarde [facility] HEMOGLOBIN A1C 2019-11-04 10:50:00 Jarrell Velarde [facility] U/S THYROID/NECK 2019-10-24 07:49:19 ReyJarrell Cruz [facility]th SIMPLE UROFLOWMETRY (UFR) (EG, STOP-WATCH FLOW RATE, M ECHANICAL UROFLOWMETER) 2019-07-08 15:30:26 Jesusita Aggarwal [facility] URINALYSIS 2019-06-17 10:05:00 Angela Briones [facility] URINALYSIS 2019-06-17 10:05:00 Angela Briones [facility] PROSTATE SPECIFIC ANTIGEN (PSA) 2019-06-17 10:05:00 Sandeep Briones [facility] THYROID STIMULATING HORMONE (TSH) 2019-06-17 10:05:00 [facility] COMPREHENSIVE METABOLIC PANEL 2019-06-17 10:05:00 [facility], 25-HYDROXY 2019-06-17 10:05:00 [facility] LIPID PROFILE 2019-06-17 10:05:00 [facility] HEMOGLOBIN A1C 2019-06-17 10:05:00 [facility]selom [facility] URINE CULTURE 2019-06-17 10:05:00 Anselmo [facility] Plan of Care Planned Activity Planned Date Details Comments Source Future Scheduled Test 2024-01-24 00:00:00 Screening for jed gnant neoplasm of colon (procedure) [code = 901088729] [facility] Future Scheduled Test 2020-11-03 00:00:00 CORONARY ARTERY DI SEASE AGE 18 AND UP [code = CORONARY ARTERY DISEASE AGE 18 AND UP] [facility] Instructions [facility] Catheter [facility] Instructions Urinary Tract Infection - Men [facility] Encounters Start Date/Time End Date/Time En[facility] Type [facility] Encounter ID Source 2020-01-06 12:25:00 2020-01-06 15:30:00 Departed Emergency Room [facility] [id number] [facility] Patients [facility] 2019-05-30 00:00:00 2019-05-30 00:00:00 Outpatient [facility] [id number] [facility] 2019-01-23 12:01:01 2019-01-23 12:01:01 Outpatient [facility] [id number] [facility] 2019-01-23 00:00:00 2019-01-23 00:00:00 Outpatient [facility] [id number] [facility] 2019-01-23 00:00:00 2019-01-23 00:00:00 Outpatient [facility] [id number] [facility] 2018-12-13 00:00:00 2018-12-13 00:00:00 Outpatient [facility] [id number] [facility] 2018-12-11 07:38:04 2018-12-11 07:38:04 Outpatient [facility] [id number] [facility] 2018-10-22 15:11:24 2018-10-22 15:11:24 Outpatient [facility] [id number] [facility] 2018-10-01 10:58:55 2018-10-01 10:58:55 Outpatient [facility] [id number] [facility] 2018-09-23 09:13:09 2018-09-23 09:13:09 Outpatient [facility] [id number] [facility] 2018-09-19 08:38:44 2018-09-19 08:38:44 Outpatient [facility] [id number] [facility] 2018-09-03 08:28:11 2018-09-03 08:28:11 Outpatient [facility] [id number] [facility] 2018-08-22 13:01:00 2018-08-22 13:01:00 Outpatient [facility] [id number] [facility] 2018-07-24 09:41:30 2018-07-24 09:41:30 Outpatient [facility] [id number] [facility] 2018-07-24 08:45:48 2018-07-24 08:45:48 Outpatient [facility] [id number] [facility] 2018-06-27 09:32:33 2018-06-27 09:32:33 Outpatient [facility] [id number] [facility] 2018-06-18 00:00:00 2018-06-18 00:00:00 Outpatient [facility] [id number] [facility] 2018-06-17 00:00:00 2018-06-17 00:00:00 Outpatient [facility] [id number] [facility] 2018-05-07 14:08:33 2018-05-07 14:08:33 Outpatient [facility] [id number] [facility] 2018-05-02 09:37:34 2018-05-02 09:37:34 Outpatient [facility] [id number] [facility] 2018-04-29 08:04:53 2018-04-29 08:04:53 Outpatient [facility] [id number] [facility] 2018-04-29 00:00:00 2018-04-29 00:00:00 Outpatient [facility] [id number] [facility] 2018-04-23 00:00:00 2018-04-23 00:00:00 Outpatient [facility] [id number] [facility] 2018-04-03 00:00:00 2018-04-03 00:00:00 Outpatient [facility] [id number] [facility] 2018-03-29 00:00:00 2018-03-29 00:00:00 Outpatient [facility] [id number] [facility] 2018-03-21 09:02:03 2018-03-21 09:02:03 Outpatient [facility] [id number] [facility] 2018-03-21 00:00:00 2018-03-21 00:00:00 Outpatient [facility] [id number] [facility] 2018-03-21 00:00:00 2018-03-21 00:00:00 Outpatient [facility] [id number] [facility] 2018-03-14 00:00:00 2018-03-14 00:00:00 Outpatient [facility] [id number] [facility] 2018-03-14 00:00:00 2018-03-14 00:00:00 Outpatient [facility] [id number] [facility] 2018-03-12 00:00:00 2018-03-12 00:00:00 Outpatient [facility] [id number] [facility] 2018-03-06 00:00:00 2018-03-06 00:00:00 Outpatient [facility] [id number] [facility] 2018-02-18 14:02:55 2018-02-18 14:02:55 Outpatient [facility] [id number] [facility] 2018-02-18 00:00:00 2018-02-18 00:00:00 Outpatient [facility] [id number] [facility] 2018-02-14 10:13:19 2018-02-14 10:13:19 Outpatient [facility] [id number] [facility] 2018-02-05 00:00:00 2018-02-05 00:00:00 Outpatient [facility] [id number] [facility] 2018-02-05 00:00:00 2018-02-05 00:00:00 Outpatient [facility] [id number] [facility] 2018-01-31 06:55:27 2018-01-31 06:55:27 Outpatient [facility] [id number] [facility] 2018-01-15 10:32:37 2018-01-15 10:32:37 Outpatient [facility] [id number] [facility] 2018-01-14 14:56:57 2018-01-14 14:56:57 Outpatient [facility] [id number] [facility] 2018-01-11 00:00:00 2018-01-11 00:00:00 Outpatient [facility] [id number] [facility] 2017-12-28 00:00:00 2017-12-28 00:00:00 Outpatient [facility] [id number] [facility] 2017-12-26 08:39:06 2017-12-26 08:39:06 Outpatient [facility] [id number] [facility] 2017-12-26 08:32:17 2017-12-26 08:32:17 Outpatient [facility] [id number] [facility] 2017-12-18 15:12:46 2017-12-18 15:12:46 Outpatient [facility] [id number] [facility] 2017-11-28 13:13:19 2017-11-28 13:13:19 Outpatient [facility] [id number] [facility] 2017-11-23 10:18:31 2017-11-23 10:18:31 Outpatient [facility] [id number] [facility] 2017-11-23 08:50:43 2017-11-23 08:50:43 Outpatient [facility] [id number] [facility] 2017-08-13 09:05:24 2017-08-13 09:05:24 Outpatient [facility] [id number] [facility] 2017-05-31 12:37:13 2017-05-31 12:37:13 Outpatient [facility] [id number] [facility] 2017-05-21 15:10:08 2017-05-21 15:10:08 Outpatient [facility] [id number] [facility] 2017-05-04 00:00:00 2017-05-04 00:00:00 Outpatient [facility] [id number] [facility] 2017-04-30 09:48:30 2017-04-30 09:48:30 Outpatient [facility] [id number] [facility] 2017-04-30 08:54:08 2017-04-30 08:54:08 Outpatient [facility] [id number] [facility] 2017-03-14 13:17:32 2017-03-14 13:17:32 Outpatient [facility] [id number] [facility] 2017-03-09 10:24:34 2017-03-09 10:24:34 Outpatient [facility] [id number] [facility] 2017-03-09 09:25:00 2017-03-09 09:25:00 Outpatient [facility] [id number] [facility] 2017 14:40:39 2017 14:40:39 Outpatient [facility] [id number] [facility] [facility] 2016-12-27 13:27:36 2016-12-27 13:27:36 Outpatient [facility] [id number] [facility] 2016-11-29 13:33:22 2016-11-29 13:33:22 Outpatient [facility] [id number] [facility] 2016-11-14 13:43:16 2016-11-14 13:43:16 Outpatient [facility] [id number] [facility] Results Test Description Test Time Test Comments Results Result Comments Source POC URINE DIPSTICK, WITHOUT MICRO 2020-04-19 00:00:00 Test Item Color POC (test code = 99864) Yellow - - - Clarity POC (test code = 17560) Clear - - - Glucose POC (test code = 32596) Negative Negative - Negative Bilirubin POC (test code = 52593) 1+ Negative - Negative Ketone POC (test code = 16029) Negative Negative - Negative Spec Powers POC (test code = 8156) 1.030 1.005-1.030 Blood POC (test code = 82296) Trace Negative - Negative pH POC (test code = 26573) 5.5 5.0-7.0 Protein POC (test code = 16174) Negative Negative - Negative Urobilinogen POC (test code = 14431) <1.0 0.2-1 Nitrate POC (test code = 69757) Negative Negative - Negative Leukocyte POC (test code = 43791) Negative Negative - Negative [facility] rqekgmhiytxmh1565-13-30 13:23:00* Test Item Value Reference Range Interpretation Comments Urine Color (test code = 5778-6) XAVIER YELLOW [facility] [id number] 13:23:00* Test Item Value Reference Range Interpretation Comments Urine Clarity (test code = 40504-7) CLOUDY CLEAR [facility] gravity of Urine by Test strip 2020-01-06 13:23:00* Test Item Value Reference Range Interpretation Comments Urine Specific Powers (test code = 5811-5) 1.030 1.010-1.02 5 [facility] pH measurement by automated test mnlgj8507-57-18 13:23:00* Test Item Value Reference Range Interpretation Comments Urine pH (test code = 74356-5) 5.5 5-7 [facility] leukocyte esterase detection by bltfnnci4931-92-41 13:23:00* Test Item Value Reference Range Interpretation Comments Urine Leukocyte Esterase (test code = 5799-2) TRACE NEGATIVE [facility] nitrite dgjeorsst0870-32-37 13:23:00* Test Item Value Reference Range Interpretation Comments Urine Nitrite (test code = 47212-7) NEGATIVE NEGATIVE [facility] protein measurement by test strip (mass/volume)2020-01-06 13:23:00* Test Item Value Reference Range Interpretation Comments Urine Protein (test code = 5804-0) >=300 NEGATIVE [facility] glucose qliacdftl3459-97-28 13:23:00* Test Item Value Reference Range Interpretation Comments Urine Glucose (UA) (test code = 2349-9) NEGATIVE NEGATIVE [facility] ketones detection by automated test rtgvs4199-94-12 13:23:00* Test Item Value Reference Range Interpretation Comments Urine Ketones (test code = 47496-0) 2+ NEGATIVE [facility] urobilinogen measurement by test strip (mass/volume)2020-01-06 13:23:00* Test Item Value Reference Range Interpretation Comments Urine Urobilinogen (test code = 38166-7) 1 0.2-1 [facility] total bilirubin measurement (mass/volume)2020-01-06 13:23:00* Test Item Value Reference Range Interpretation Comments Urine Bilirubin (test code = 1978-6) MODERATE NEGATIVE [facility] erythrocytes ntgyathsk5200-09-00 13:23:00* Test Item Value Reference Range Interpretation Comments Urine Blood (test code = 00118-8) LARGE NEGATIVE [facility] CenterAutomated urine sediment leukocyte count by microscopy (number/high power field)2020-01-06 13:23:00* Test Item Value Reference Range Interpretation Comments Urine WBC (test code = 5821-4) 6-10 0-5 [facility] CenterErythrocytes detection in urine sediment by light sqtujphewy3936-27-29 13:23:00* Test Item Value Reference Range Interpretation Comments Urine RBC (test code = 36250-3) >50 0-5 [facility] CenterBacteria detection in urine sediment by light alkaxqxhnq7964-47-88 13:23:00* Test Item Value Reference Range Interpretation Comments Urine Bacteria (test code = 52708-5) MODERATE NONE [facility] CenterEpithelial cells detection in urine sediment by light bmcpnvjmwf6661-35-70 13:23:00* Test Item Value Reference Range Interpretation Comments Urine Epithelial Cells (test code = 69448-3) NONE NONE [facility] CenterBlood leukocytes automated count (number/volume)2020-01-06 12:32:00* Test Item Value Reference Range Interpretation Comments White Blood Count (test code = 6690-2) 9.76 4.8-10.8 [facility] CenterBlood erythrocytes automated count (number/volume)2020-01-06 12:32:00* Test Item Value Reference Range Interpretation Comments Red Blood Count (test code = 789-8) 4.79 4.3-5.7 [facility] CenterBlood hemoglobin measurement (moles/volume)2020-01-06 12:32:00* Test Item Value Reference Range Interpretation Comments Hemoglobin (test code = 95941-9) 13.7 14.0-18.0 [facility] CenterAutomated blood hematocrit (volume fraction)2020-01-06 12:32:00* Test Item Value Reference Range Interpretation Comments Hematocrit (test code = 4544-3) 41.5 38.2-49.6 [facility] CenterAutomated erythrocyte mean corpuscular cpiczs5902-78-96 12:32:00* Test Item Value Reference Range Interpretation Comments Mean Corpuscular Volume (test code = 787-2) 86.6 81-99 [facility] CenterAutomated erythrocyte mean corpuscular hemoglobin (mass per erythrocyte)2020-01-06 12:32:00* Test Item Value Reference Range Interpretation Comments Mean Corpuscular Hemoglobin (test code = 785-6) 28.6 28-32 [facility] CenterAutomated erythrocyte mean corpuscular hemoglobin concentration measurement (mass/volume)2020-01-06 12:32:00* Test Item Value Reference Range Interpretation Comments Mean Corpuscular Hemoglobin Concent (test code = 786-4) 33.0 31-35 [facility] CenterRDW ZeaTr-Qde4526-59-04 12:32:00* Test Item Value Reference Range Interpretation Comments Red Cell Distribution Width (test code = 85861-7) 13.0 11.7 -14.4 [facility] CenterAutomated blood platelet count (count/volume)2020-01-06 12:32:00* Test Item Value Reference Range Interpretation Comments Platelet Count (test code = 777-3) 257 140-360 [facility] CenterAutformerly [facility] hospitaled blood segmented neutrophil count as percentage of total mtxuacterq7078-93-52 12:32:00* Test Item Value Reference Range Interpretation Comments Neutrophils (%) (Auto) (test code = 36817-6) 74.3 38.7-80.0 [facility] CenterAutomated blood lymphocyte count as percentage ot total vwvnptkebt4691-93-80 12:32:00* Test Item Value Reference Range Interpretation Comments Lymphocytes (%) (Auto) (test code = 736-9) 13.4 18.0-39.1 [facility] CenterAutomated blood monocyte count as percentage of total czhjwnvljy4718-52-18 12:32:00* Test Item Value Reference Range Interpretation Comments Monocytes (%) (Auto) (test code = 5905-5) 8.6 4.4-11.3 [facility] CenterAutomated blood eosinophil count as percentage of total lvimxzbijy3328-88-09 12:32:00* Test Item Value Reference Range Interpretation Comments Eosinophils (%) (Auto) (test code = 713-8) 2.7 0.0-6.0 [facility] CenterAutomated blood basophil count as percentage of total cjneeshyli5430-36-15 12:32:00* Test Item Value Reference Range Interpretation Comments Basophils (%) (Auto) (test code = 706-2) 0.4 0.0-1.0 [facility] CenterFluoroscopic procedure less than one hour eadoyvhr4192-78-24 12:32:00* Test Item Value Reference Range Interpretation Comments IM GRANULOCYTES % (test code = IM GRANULOCYTES %) 0.6 0.0- 1.0 [facility] CenterAutomated blood neutrophil count 2020-01-06 12:32:00* Test Item Value Reference Range Interpretation Comments Neutrophils # (Auto) (test code = 751-8) 7.3 2.1-6.9 [facility] CenterBlood lymphocytes count (number/volume) 2020-01-06 12:32:00* Test Item Value Reference Range Interpretation Comments Lymphocytes # (Auto) (test code = 45847-2) 1.3 1.0-3.2 [facility] CenterBlood monocytes automated count (number/volume)2020-01-06 12:32:00* Test Item Value Reference Range Interpretation Comments Monocytes # (Auto) (test code = 742-7) 0.8 0.2-0.8 [facility] CenterAutomated blood eosinophil count 2020-01-06 12:32:00* Test Item Value Reference Range Interpretation Comments Eosinophils # (Auto) (test code = 711-2) 0.3 0.0-0.4 [facility] CenterAutomated blood basophil count (count/volume)2020-01-06 12:32:00* Test Item Value Reference Range Interpretation Comments Basophils # (Auto) (test code = 704-7) 0.0 0.0-0.1 [facility] CenterFluoroscopic procedure less than one hour ffobbofi0229-98-98 12:32:00* Test Item Value Reference Range Interpretation Comments Absolute Immature Granulocyte (auto (lubna t code = Absolute Immature Granulocyte (auto) 0.06 0-0.1 [facility] Campuserum or plasma sodium measurement (moles/volume)2020-01-06 12:32:00* Test Item Value Reference Range Interpretation Comments Sodium Level (test code = 2951-2) 139 136-145 [facility] Campuserum or plasma potassium measurement (moles/volume)2020-01-06 12:32:00* Test Item Value Reference Range Interpretation Comments Potassium Level (test code = 2823-3) 4.1 3.5-5.1 [facility] Campuserum or plasma chloride measurement (moles/volume)2020-01-06 12:32:00* Test Item Value Reference Range Interpretation Comments Chloride Level (test code = 2075-0) 105 98-107 [facility] Campuserum or plasma carbon dioxide, total measurement (moles/volume)2020-01-06 12:32:00* Test Item Value Reference Range Interpretation Comments Carbon Dioxide Level (test code = 2028-9) 22 22-29 [facility] Campuserum or plasma anion koa9603-02-85 12:32:00* Test Item Value Reference Range Interpretation Comments Anion Gap (test code = 86109-7) 16.1 8-16 [facility] Campuserum or plasma urea nitrogen measurement (mass/volume)2020-01-06 12:32:00* Test Item Value Reference Range Interpretation Comments Blood Urea Nitrogen (test code = 3094-0) 13 7-26 [facility] Campuserum or plasma creatinine measurement (mass/volume)2020-01-06 12:32:00* Test Item Value Reference Range Interpretation Comments Creatinine (test code = 2160-0) 0.96 0.72-1.25 [facility] Campuserum or plasma urea nitrogen/creatinine mass cavyj0909-17-47 12:32:00* Test Item Value Reference Range Interpretation Comments BUN/Creatinine Ratio (test code = 3097-3) 14 6-25 [facility] CenterEstimated glomerular filtration rate (GFR) ndcfnttrynpvm0536-35-46 12:32:00* Test Item Value Reference Range Interpretation Comments Estimat Glomerular Filtration Rate (test code = 172299519) > 60 >60 Ranges were taken from the National Kidney Disease Education Program and the [facility] literature.Reference ranges:60 or greater: Fpyese47-32 ( for 3 consecutive months): Chronic kidney disease 15 or less: Kidney failureShannon Medical CenterGlucose dhnejkcurmn7139-41-98 12:32:00* Test Item Value Reference Range Interpretation Comments Glucose Level (test code = HCH0627) 92 74-118 [facility] Campuserum or plasma calcium measurement (mass/volume)2020-01-06 12:32:00* Test Item Value Reference Range Interpretation Comments Calcium Level (test code = 91579-3) 9.1 8.4-10.2 [facility] Campuserum or plasma total bilirubin measurement (mass/volume)2020-01-06 12:32:00* Test Item Value Reference Range Interpretation Comments Total Bilirubin (test code = 1975-2) 0.5 0.2-1.2 [facility] CenterFluoroscopic procedure less than one hour fxxwbxjl7507-97-93 12:32:00* Test Item Value Reference Range Interpretation Comments Aspartate Amino Transf (AST/SGOT) (test code = Aspartate Amino Transf (AST/SGOT)) 15 5-34 [facility] Campuserum or plasma alanine aminotransferase measurement (enzymatic activity/volume)2020-01-06 12:32:00* Test Item Value Reference Range Interpretation Comments Alanine Aminotransferase (ALT/SGPT) (test code = 1742-6) 14 0-55 [facility] Campuserum or plasma protein measurement (mass/volume)2020-01-06 12:32:00* Test Item Value Reference Range Interpretation Comments Total Protein (test code = 2885-2) 6.8 6.5-8.1 [facility] Campuserum or plasma albumin measurement (mass/volume)2020-01-06 12:32:00* Test Item Value Reference Range Interpretation Comments Albumin (test code = 1751-7) 3.5 3.5-5.0 [facility] CenterPlasma globulin measurement (mass/volume) 2020-01-06 12:32:00* Test Item Value Reference Range Interpretation Comments Globulin (test code = 82480-9) 3.3 2.3-3.5 [facility] Campuserum or plasma albumin/globulin mass aahzz4209-14-95 12:32:00* Test Item Value Reference Range Interpretation Comments Albumin/Globulin Ratio (test code = 1759-0) 1.1 0.8-2.0 [facility] Campuserum or plasma alkaline phosphatase measurement (enzymatic activity/volume)2020-01-06 12:32:00* Test Item Value Reference Range Interpretation Comments Alkaline Phosphatase (test code = 6768-6) 50 40-150 [facility] CenterPOCT BMP POC docked msbymf8244-69-94 06:08:00* Test Item Value Reference Range Interpretation Comments Sodium POC (test code = 87590848) 136 mmol/L 136-145 Potassium POC (test code = 03169064) 3.9 mmol/L 3.5-5.1 Chloride POC (test code = 57513896) 102 mmol/L 98-107 TCO2 POC (test code = 84384338) 27 mmol/L 21-32 Urea Nitrogen POC (test code = 09058702) 18 mg/dL 7-18 Glucose POC (test code = 19636557) 96 mg/dL 74-106 Hemoglobin POC (test code = 65911357) 13.9 g/dL 12-16 Hematocrit POC (test code = 76980633) 41.0 % 37-47 Lab Interpretation (test code = 96483-1) Normal [facility] CREATININE POC docked ksajox5135-87-50 06:06:00* Test Item Value Reference Range Interpretation Comments Creatinine POC (test code = 52922079) 0.8 mg/dL 0.6-1.3 GFR, Estimated (test code = 79435178) >90 >=90 mL/min/1.73 m2 Lab Interpretation (test code = 53699-5) Normal [facility] HospitalHgb/Mya5738-27-47 17:56:00* Test Item Value Reference Range Interpretation Comments Hemoglobin (test code = 718-7) 13.7 g/dL 14-18 L Hematocrit (test code = 4544-3) 41.4 % 40-54 Lab Interpretation (test code = 36119-8) Abnormal [facility] ABDOMEN AND PELVIS [id number] 20:26:42IMPRESSION: 1. Lambert catheter positioned in the [...] B y: Roxana Perkins MD, 12/30/2019 8:[facility] YaxibcWaehbl8559-17-82 17:42:00* Test Item Value Reference Range Interpretation Comments Lipase (test code = 08666697) 38 U/L 11-82 Lab Interpretation (test code = 21188-9) Normal [facility] HospitalLiver Pknfzjy1779-37-64 17:42:00* Test Item Value Reference Range Interpretation Comments Bilirubin, Total (test code = 2885-2) 0.7 mg/dL 0.2-1.2 Alkaline Phosphatase (test code = 77814253) 49 U/L 34-104 AST (test code = 83775201) 17 U/L 13-39 Direct Bilirubin (test code = 1968-7) 0.1 mg/dL 0-0.2 ALT (test code = 06449818) 17 U/L 7-52 Albumin (test code = 11702-7) 4.1 g/dL 4.2-5.5 L Lab Interpretation (test code = 14328-9) [facility]normal [facility]Qqff3686-67-07 17:21:00* Test Item Value Reference Range Interpretation [...] 32.8 g/dL 32-36 RDW (test code = 33839-1) 42.6 fL 35.1-43.9 Platelet (test code = 777-3) 231 K/uL 150-400 Mean Platelet Volume (test code = 37762-9) 10.2 fL 9.4-12.4 Percent NRBC (test code = 64928222) 0.0 % Neutrophil (test code = 770-8) 72.1 % 34-67.9 H Lymphs (test code = 736-9) 18.2 % 21.8-50 L Monocytes (test code = 5905-5) 8.0 % 5.3-12 Eos (test code = 713-8) 0.9 % 0.8-5 Basos (test code = 706-2) 0.4 % 0.2-1.2 Immature Granulocytes (test code = 69753570) 0.4 % 0-0.5 Neutrophils (Absolute) (test code = 99752251) 7.54 K/uL 1.78-5.3 6 H Lymphs (Absolute) (test code = 70779819) 1.90 K/uL 1.32-3.57 Monocytes(Absolute) (test code = 91345613) 0.83 K/uL 0.3-0.82 H Eos (Absolute) (test code = 09912413) 0.09 K/uL 0.04-0.54 Baso (Absolute) (test code = 99065980) 0.04 K/uL 0.01-0.08 Immature Grans (Abs) (test code = 44967570) 0.04 K/uL 0-0.03 H Absolute NRBC (test code = 80922575) 0.00 K/uL Lab Interpretation (test code = 66905-7) Abnormal [facility] HospitalRgwlehVytggjvonn7419-14-09 16:08:00* Test Item Value Reference Range Interpretation Comments Color (test code = 34044415) Yellow Colorless, Straw, Yellow Clarity (test code = 46613784) Clear Clear Spec Powers, Ur (test code = 66697955) 1.015 1.001-1.035 pH, Ur (test code = 04623262) 6.0 5.0-8.0 Protein, Ur (test code = 05582817) Negative Negative mg/dL Glucose, Ur (test code = 25371123) Negative Negative mg/dL Ketone, Ur (test code = 69655666) Negative Negative mg/dL Bilirubin, Ur (test code = 27702934) Negative Negative mg/dL Nitrite, Ur (test code = 09381014) Negative Negative Leukocyte (test code = 85677217) Negative Negative mg/dL Blood, Ur (test code = 46240321) 2+ Negative mg/dL A RBC (test code = 82073922) 45 0- 4 /HPF H WBC (test code = 84417861) 1 0- 5 /HPF Epithelial Cell (test code = 91267957) <1 <=1 /HPF Mucous (test code = 79959541) Present None seen /HPF A Urobilinogen, Ur (test code = 00787087) <1.0 <1.0 EU/dL Lab Interpretation (test code = 55924-7) Abnormal [facility] KNEE JOINT W/O PXHVSNHM5890-91-84 09:40:03IMPRESSION: 1. Complex tear posterior horn and [...] left KNEE was performed WITHOUTinjected contrast per departme nt protocol. DISCUSSION: Tendons and Ligaments: ACL: [...] eport.Signed By: Brian Dunn MD, 11/27/2019 9:40 [facility] [employer] GroupXRAY KNEES- BILATERAL WT. BEARING (AP/LAT/SUN)2019-11-04 11:26:48IMPRESSION: 1. [...] t.Signed By: Marcell Jones MD, 11/04/2019 11:26 [facility] 2019-10-24 09:44:54Interface, Rad/Mammog In - [...] this report.Signed By: Linsey Benavidez, 10/24/2019 9:44 [facility] HospitalVitamin D, 87-Lihmsxbepgbkmsgdw8293-42-15 11:56:00* Test Item Value Reference Range Interpretation Comments Vit D, 25-Hydroxy (test code = 47811125) 30.1 ng/mL 30-100 Vitamin D Interpretation (test code = 81033653) Sufficient Suffic ient Sufficient: >30.0Insufficient: 20.0 - 29.9Deficient: <20.0 Lab Interpretation (test code = 37705-5) Normal [facility] HospitalTSH [Thyroid Stimulating Hormone]2019-06-17 16:07:00* Test Item Value Reference Range Interpretation Comments TSH (test code = 78205619) 2.53 0.45- 5.33 uIU/mL Lab Interpretation (test code = 52778-4) Normal [facility]
--- OUTSIDE RECORDS SUMMARY | 2020-04-27 19:28 | XMS REPORT | Clinical Summary ---
Author Author [facility] Organization [facility] Address Unknown Phone Unavailable Care Team Providers Care Sand Analyst Name Role Phone Angela Briones Physician PCP [phone] Jennifer Martinez MD PCP Allergies Comments Active Allergy Reactions Severity Noted Date Pt. States it causes upset stomach Aspirin Nausea Only High 05/27/2010 Medications End Date Status Medication Sig Dispensed Refills Start Date Active Tadalafil (CIALIS) 10 mg One tab 30 tablet 3 0 tabletIndications: BPH orally every 8 associated with nocturia other day.. Active omeprazole (PRILOSEC) 20 Take 1 90 capsule 3 0 mg delayed release capsule by 9 capsuleIndications: mouth daily. Gastroesophageal reflux disease without esophagitis Active atorvastatin (LIPITOR) 20 Take 1 tablet [...] mouth 3 0 Bladder spasms times daily. Active ketoconazole (NIZORAL) 2 USE ON SCALP 120 mL 0 % shampooIndications: 2 TO 3 TIMES 0 Seborrheic dermatitis, PER WEEK. unspecified Active ALLERGY RELIEF, Take 1 tablet 90 tablet 2 04/16/20 2 CETIRIZINE, 10 mg by mouth once 0 tabletIndications: daily Environmental and seasonal allergies 10/21/2019 Discontinued (Reorder) atorvastatin (LIPITOR) 20 Take 1 tablet 90 tablet 3 mg tabletIndications: by mouth at 8 Dyspnea on exertion bedtime nightly. 08/08/2019 Discontinued (Therapy comple jamee) ketoconazole (NIZORAL) [...] capsuleIndications: BPH mouth daily. associated with nocturia 04/16/2020 Discontinued cetirizine (ZYRTEC) 10 mg Take 1 tablet 90 tablet 3 tabletIndications: by mouth 9 Environmental and daily. seasonal allergies 07/08/2019 Discontinued (Error) tamsulosin (FLOMAX) 0.4 Take 1 90 capsule 4 mg extended release capsule by 0 capsuleIndications: mouth daily. Nocturia 07/08/2019 Discontinued (Error) finasteride (PROSCAR) 5 Take 1 tablet 90 tablet 4 mg tabletIndications: by mouth 0 Nocturia daily. 10/21/2019 Discontinued (Reorder) tamsulosin (FLOMAX) 0.4 Take 1 90 capsule 3 mg extended release capsule by 0 capsuleIndications: BPH mouth daily. associated with nocturia 10/21/2019 Discontinued (Reorder) finasteride (PROSCAR) 5 Take 1 tablet 90 tablet 3 mg tabletIndications: by mouth 0 Nocturia daily. 03/22/2020 Discontinued ketoconazole (NIZORAL) 2 Use on scalp 120 mL 3 % shampooIndications: 2-3 0 Seborrheic dermatitis, times/week.. unspecified 11/14/2019 Discontinued (Reorder) predniSONE (DELTASONE) 50 Take 1 tablet 12 tablet 0 mg tabletIndications: by mouth 2 0 Chronic [...] hours abdominal pain as needed for Pain. 04/19/2020 amoxicillin-clavulanate Take 1 tablet 20 tablet 0 (AUGMENTIN) 875-125 mg by mouth 2 0 per tabletIndications: times daily Benign prostatic for 10 days hyperplasia with lower START 1 WEEK urinary tract symptoms, PRIOR TO symptom details PROCEDURE. unspecified Active Problems Problem Noted Date Benign prostatic [...] Encounters Care Team Description Date Type Specialty Greg Quiroz ResidentMD 04/21/2020 Orders Only Urology Joyce Gilbert ResidentMD Godoy, Guilherme, MD Benign prostatic hyperplasia with lower urinary tract symptoms, symptom details unspecified (Primary Dx) 04/19/2020 Office Visit Urology Angela Briones, Physician Medications 04/15/2020 Refill Family Practice Micah Carnes ResidentMD Medications 04/09/2020 Orders Only Urology Angela Briones, Physician Medications 03/17/2020 Refill Family Practice Dee James PA Godoy, Guilherme, MD Hsieh, [...] Practice Jennifer Emery MD 11/14/2019 Orders Only [facility] Practice Dinah William MD 11/04/2019 Ancillary Radiology Procedure 10/24/2019 Ancillary Radiology Procedure Jarrell Velarde PA Essential hypertension (Primary Dx); Prediabetes; BPH associated with nocturia; Neck mass; Chronic pain of both knees; Mixed hyperlipidemia 10/21/2019 Telephonic Family Practice Encounter Constance Coppola MD NO SHOW ENCOUNTER (Primary Dx) 10/21/2019 Telephonic Neurology Encounter Marylu Fulton RN 10/20/2019 Refill General Surgery Angela Briones, Physician Essential hypertension (Primary Dx); Elevated PSA; BMI 33.0-33.9,adult; Dietary counseling; Prediabetes; Benign prostatic hyperplasia with urinary frequency; Seborrheic dermatitis, unspecified 08/08/2019 Office Visit [facility] Practice Jesusita Aggarwal PA Nocturia (Primary Dx); Elevated PSA; BPH with obstruction/lower urinary tract symptoms; Gastroesophageal reflux disease without esophagitis; BPH associated with nocturia 07/08/2019 Office Visit Urology Angela Briones, Physician Nocturia (Primary Dx); Encounter for vaccination; Dietary counseling for Above / Below Normal BMI; Exercise counseling for Above Normal BMI Only!; Elevated PSA; Essential hypertension; Suprapubic pain; Tremors of nervous system; Mass in neck 06/17/2019 Office Visit Family Practice after 04/27/2019 Immunizations Name Administration Dates Next Due Herpes [...] history available. Date Recorded COVID-19 Exposure Response 04/05/2020 9:27 AM CHARGEMASTER SPECIALIST In the last month, have you been in contact with No / Unsure someone who was confirmed or suspected to have Coronavirus / COVID-19? Last Filed Vital Signs Reading Time Taken Comments Vital Sign 132/74 04/19/2020 8:29 AM CHARGEMASTER SPECIALIST Blood Pressure 60 04/19/2020 8:29 AM CHARGEMASTER SPECIALIST Pulse 36.6 C (97.8 F) 04/19/2020 8:29 AM CHARGEMASTER SPECIALIST Temperature 18 04/19/2020 8:29 AM CHARGEMASTER SPECIALIST Respiratory Rate 100% 01/05/2020 7:00 PM CDT Oxygen Saturation - - Inhaled Oxygen Concentration 104.8 kg (231 lb) 04/19/2020 8:29 AM CHARGEMASTER SPECIALIST Weight 175.3 cm (5' 9") 04/19/2020 8:29 AM CHARGEMASTER SPECIALIST Height 34.11 04/19/2020 8:29 AM CHARGEMASTER SPECIALIST Body Mass Index Plan of Treatment Care Team Description Date Type Specialty 05/05/2020 Office Visit Dermatology 05/07/2020 Lab Appointment Lab Mook Pastrana MD [address] [place] [address] 05/18/2020 Lab Appointment Lab GilbertNyasiaJoyce Em, ResidentMD [address] [place] [address] 05/31/2020 Office Visit Urology Health Maintenance Due Date Last Done Comments CORONARY ARTERY DISEASE 11/03/2020 11/04/2019, AGE 18 AND UP 06/17/2019, 12/26/2017, Additional history exists Colonoscopy 5yr 01/24/2024 01/23/2019 IMM Pneumococcal Age 65 Completed 11/29/2016, and Up 03/05/2015 Goals Goal Patient Associated Recent Progress Patient-Stat Aut hor Goal Type Problems ed? Eat Healthy Lifestyle No Rebeca Kessler LVN Eat Healthy Lifestyle No Rebeca Kessler LVN Reduce pain Lifestyle Yes Rebeca Schroeder, Wood Heel Attacher Eat Healthy Lifestyle Yes Rebeca Schroeder, Wood Heel Attacher Procedures Comments Procedure Name Priority Date/Time Associated Diag nosis POC URINE DIPSTICK, Routine 04/19/2020 Benign pro static WITHOUT MICRO hyperplasia with lower urinary tract symptoms, symptom details unspecified URINE CULTURE Routine 04/05/2020 Benign prostati c 9:30 AM CHARGEMASTER SPECIALIST hyperplasia with urinary retention URINE CULTURE Routine 01/19/2020 Retention of ur [...] Noct uria (EG, STOP-WATCH FLOW 3:30 PM CHARGEMASTER SPECIALIST RATE, MECHANICAL UROFLOWMETER) URINE CULTURE Routine 06/17/2019 Nocturia 10:05 AM CHARGEMASTER SPECIALIST Suprapubic pain HEMOGLOBIN A1C Routine 06/17/2019 Essential hyper tension 10:05 AM CHARGEMASTER SPECIALIST LIPID PROFILE Routine 06/17/2019 Essential hyper tension 10:05 AM CHARGEMASTER SPECIALIST VIT D, 25-HYDROXY Routine 06/17/2019 Tremors of n ervous system 10:05 AM CHARGEMASTER SPECIALIST COMPREHENSIVE METABOLIC Routine 06/17/2019 Elevat ed PSA PANEL 10:05 AM CHARGEMASTER SPECIALIST THYROID STIMULATING Routine 06/17/2019 Mass in ne ck HORMONE (TSH) 10:05 AM CHARGEMASTER SPECIALIST PROSTATE SPECIFIC ANTIGEN Routine 06/17/2019 Noct uria (PSA) 10:05 AM CHARGEMASTER SPECIALIST Elevated PSA URINALYSIS Routine 06/17/2019 Nocturia 10:05 AM CHARGEMASTER SPECIALIST Suprapubic pain URINALYSIS Routine 06/17/2019 Nocturia 10:05 AM CHARGEMASTER SPECIALIST Suprapubic pain after 04/27/2019 Results * POC URINE DIPSTICK, WITHOUT MICRO (04/19/2020) Color POC Yellow - - - Clarity POC Clear - - - Glucose POC Negative Negative - Negative Bilirubin POC 1+ Negative - Negative Ketone POC Negative Negative - Negative Spec [place] 1.030 1.005 - 1.030 POC Blood POC Trace Negative - Negative pH POC 5.5 5.0 - 7.0 Protein POC Negative Negative - Negative Urobilinogen <1.0 0.2 - 1.0 EU/dL POC Nitrate POC Negative Negative - Negative Leukocyte POC Negative Negative - Negative Specimen Urine * URINE CULTURE (C & S) (04/05/2020 9:30 AM CHARGEMASTER SPECIALIST) Only the most recent of 3 results within the time period is included. Pathologist [facility] Urine Culture >100,000 CFU/mL Enterococcus [facility] faecalis (A) LABORATORY Specimen Urine - Catheter / Catheter Tip Antibiotic Method Susceptibility Organism Ampicillin SENSITIVITY 1 ug/mL: Susceptible Enterococcus faecalis Daptomycin SENSITIVITY 2 ug/mL: Susceptible Enterococcus faecalis Nitrofurantoin SENSITIVITY <=16 ug/mL: Susceptible Enterococcus faecalis Gentamicin-Synergy SENSITIVITY <=500 ug/mL: Susceptible Enterococcus faecalis Linezolid SENSITIVITY <=1 ug/mL: Susceptible Enterococcus faecalis Streptomycin Synergy SENSITIVITY <=1,000 ug/mL: Susceptible Enterococcus faecalis Tetracycline SENSITIVITY <=0.5 ug/mL: Susceptible Enterococcus faecalis Vancomycin SENSITIVITY 4 ug/mL: Susceptible Enterococcus faecalis Performing Organization Address [facility] one Number [facility] [address] [place] [address] * POCT CREATININE POC docked device (01/02/2020 5:59 AM CDT) Only the most recent of 2 results within the time period is included. Creatinine POC 0.8 0.6 - 1.3 mg/dL [facility] GFR, Estimated >90 >=90 mL/min/1.73 m2 [facility] P [facility] Specimen Blood, venous Performing Organization Address [facility] one Number [facility] PO[facility] CARE [address] [place] [address] LABORATORY * POCT BMP POC docked device [...] LABORATORY Specimen Blood, venous Performing Organization Address [facility] one Number [facility] PO[facility] [address] [place] [address] LABORATORY * Hgb/Hct (12/31/2019 5:36 PM CDT) Hemoglobin 13.7 (L) 14.0 - 18.0 g/dL [facility] Hematocrit 41.4 40.0 - 54.0 % [facility] Specimen Blood Performing Organization Address City/State/Zipcode Ph one Number [facility] [address] [place] [address] [phone] * CT ABDOMEN AND PELVIS CONTRAST (12/30/2019 [...] (H) 0.30 - 0.82 K/uL [facility] vladimir) LABORATORY Eos (Absolute) 0.09 0.04 - 0.54 K/uL [facility] Baso (Absolute) 0.04 0.01 - 0.08 K/uL [facility] Immature Grans 0.04 (H) 0.00 - 0.03 K/uL [facility] (Abs) LABORATORY Absolute NRBC 0.00 K/uL [facility] Specimen Blood Performing Organization Address City/State/Zipcode Ph one Number [facility] [address] [place] [address] [phone] * Liver Profile (12/30/2019 4:57 PM CDT) [...] LABORATORY Specimen Blood Performing Organization Address [facility] one Number [facility] [address] [place] [address] * Lipase (12/30/2019 4:57 PM CDT) Pathologist [facility] Lipase 38 11 - 82 U/L [facility] Specimen Blood Performing Organization Address [facility] one Number [facility] [address] [place] [address] * Urinalysis (12/30/2019 3:09 PM CDT) Only the most recent of 2 results within the time period is included. Color Yellow Colorless, Straw, [facility] Yellow LABORATORY Clarity Clear Clear [facility] Spec [place], 1.015 1.001 - 1.035 [facility] Ur [...] Ur LABORATORY Specimen Urine Performing Organization Address City/State/Zipcode Ph one Number [facility] [address] [place] [address] * MRI KNEE JOINT W/O CONTRAST (11/27/2019 [...] MD, 11/27/2019 9:40 AM Performing Organization Address City[facility]State[facility] Ph one Number SMS * XRAY KNEES-BILATERAL [...] MD, 11/04/2019 11:26 AM Performing Organization Address [facility] Ph one Number SMS * Hemoglobin A1C (11/04/2019 10:50 AM CDT) Only the most recent of 2 results within the time period is included. Hemoglobin A1c 5.9 4.3 - 6.1 % [facility] Estimated 123 (H) 70 - 110 mg/dL [facility] Average Glucose LABORATORY Specimen Blood Performing Organization Address [facility] Ph one Number [facility] [address] [place] [address] * Comprehensive Metabolic Panel (11/04/2019 10:50 AM CDT) Only the most recent of 2 results within the time period is included. Sodium 142 136 - 145 mmol/L [facility] [...] [facility] Specimen Blood Performing Organization Address [facility] one Number [facility] [address] [place] [address] * PSA (11/04/2019 10:50 AM CDT) Only the most recent of 2 results within the time period is included. PSA 4.470 (H) <=4.000 ng/mL [facility] Specimen Blood Performing Organization Address [facility] one Number [facility] [address] [place] [address] [phone] * Lipid Profile (11/04/2019 10:50 AM CDT) Only the most recent of 2 results within the time period is included. Cholesterol 190.0 <=200.0 mg/dL [facility] Triglyceride 136 <150 mg/dL [facility] HDL 68.0 See Reference Range [facility] Narrative. mg/dL LABORATORY LDL 95 <100 mg/dL [facility] Comment: LABORATORY Optimal: < 100.0 mg/dL Near Optimal: 120-129 mg/dL Borderline: 130-159 mg/dL High: 160-189 mg/dL Very High: >=190 mg/dL Patient Yes [facility] Fasting? LABORATORY Specimen Blood Performing Organization Address [facility] one Number [facility] [address] [place] [address] [phone] * U/S THYROID/NECK (10/24/2019 7:49 AM CDT) [...] Benavidez, 10/24/2019 9:44 AM Performing Organization Address [facility] Ph one Number SMS * Vitamin D, 25-Hydroxycalciferol (06/17/2019 10:05 AM CHARGEMASTER SPECIALIST) Vit D, 30.1 30.0 - 100.0 ng/mL [facility] 25-Hydroxy LABORATORY Vitamin D Sufficient Sufficient [facility] Interpretation Comment: LABORATORY Sufficient: >30.0 Insufficient: 20.0 - 29.9 Deficient: <20.0 Specimen Blood Performing Organization Address [facility] Ph one Number [facility] [address] [place] [address] * TSH [Thyroid Stimulating Hormone] (06/17/2019 10:05 AM CHARGEMASTER SPECIALIST) TSH 2.53 0.45 - 5.33 uIU/mL [facility] Specimen Blood Performing Organization Address City/State/Zipcode Ph one Number [facility] [address] [place], [place] [address] [phone] after 04/27/2019 Insurance Type Payer Benefit Subscriber ID Effective Phone Address Plan / Dates Group MEDICARE MEDICARE xxxxxxxxxxx 2015-P [id number] [place] [address] [place] [id number] xxxxxxxxx 2017-P [phone] resent [id number] MEDICARE [place], [place] BENEF[place] [id number] Y Advance Directives Date Inactivated Comments Code Status Date Activated 05/28/2010 12:30 AM Full Code 05/27/2010 12:42 PM
[2020-04-27 20:01] VITALS: BP 132/70
== END 2020-04-27 20:09 | disposition home or self-care (01) ==
LOC: ER 19:25
DX: N39.0 Urinary tract infection, site not specified (principal); R30.0 Dysuria; R10.30 Lower abdominal pain, unspecified; I10 Essential (primary) hypertension; E78.5 Hyperlipidemia, unspecified
CPT/HCPCS: 81001; 87086; 87186; 99282

== ENCOUNTER → 2020-07-15 | Outpatient (CLI) | payer MEDICARE | LOC: RAD 13:38 | PROVIDERS: ATTEND Family Medicine | DX: M25.562 Pain in left knee (principal) ==

== ENCOUNTER 2020-08-12 21:27 | Emergency (ER) | payer MEDICARE ==
[~2020-08-12] VITALS: Ht 177.8 cm; Wt 104.3 kg
[2020-08-12 22:09] LABS: CLARITY,URINE CLOUDY (CLEAR); COLOR,URINE YELLOW (YELLOW); LEUKOCYTE ESTERASE ,URINE MODERATE (NEGATIVE)
[2020-08-12 22:10] LABS: KETONES,URINE NEGATIVE (NEGATIVE); NITRITE,URINE NEGATIVE (NEGATIVE); PROTEIN,URINE DIPSTICK 2+ (NEGATIVE); URINE UROBILINOGEN 0.2 mg/dL (0.2 - 1)
[2020-08-12 22:27] LABS: BACTERIA,URINE RARE /HPF; EPITHELIAL CELLS,URINE FEW /LPF
[2020-08-12] MEDS ORDERED: LIDOCAINE HCL 1% LOCAL INJ 20 ML VIAL ONE (22:44)
[2020-08-12] MEDS ORDERED: CEFTRIAXONE SOD 1 GM VIAL IM ONE (22:45)
== END 2020-08-12 23:35 | disposition home or self-care (01) ==
LOC: ER 22:04
DX: R30.0 Dysuria (principal); N39.0 Urinary tract infection, site not specified; I10 Essential (primary) hypertension; E78.5 Hyperlipidemia, unspecified
CPT/HCPCS: 81001; 87086; 87186; 99283; J0696; J2001

== ENCOUNTER → 2020-10-06 | Outpatient (CLI) | payer MEDICARE ==
[~2020-10-06] MED LIST changes: +IOPAMIDOL 370 MG/ML 200 ML INFUS..BTL INJ ONE; +SODIUM CHLORIDE 0.9% 50ML 50 ML ONE
[2020-10-06 16:18] LABS: BLOOD UREA NITROGEN 15 mg/dL (7-26); BUN/CREATININE RATIO 17 (6-25); CREATININE, SERUM 0.88 mg/dL (0.72-1.25); EST GLOMERULAR FILTRATION RATE > 60 ML/MIN (60-)
== END ==
LOC: CT 15:31
PROVIDERS: ATTEND Urology
DX: N21.0 Calculus in bladder (principal); N39.0 Urinary tract infection, site not specified
CPT/HCPCS: 36415; 74178; 82565; 84520; Q9967

== ENCOUNTER 2020-11-04 01:09 | Emergency (ER) | payer MEDICARE ==
[~2020-11-04] VITALS: Ht 177.8 cm; Wt 104.3 kg
[~2020-11-04 01:09] MED LIST changes: -IOPAMIDOL 370 MG/ML 200 ML INFUS..BTL INJ ONE; -SODIUM CHLORIDE 0.9% 50ML 50 ML ONE
[2020-11-04 01:35] LABS: BASOPHILS # (AUTO) 0.1 (0.0-0.1); BASOPHILS % 0.5 % (0.0-1.0); EOSINOPHILS # (AUTO) 0.5 (0.0-0.4); EOSINOPHILS % 5.4 % (0.0-6.0); HEMATOCRIT 40.4 % (38.2-49.6); HEMOGLOBIN 13.2 g/dL (14.0-18.0); LYMPHOCYTES # (AUTO) 2.5 (1.0-3.2); LYMPHOCYTES % 27.3 % (18.0-39.1); MEAN CORPUSCULAR HEMOGLOBIN 28.7 pg (28-32); MEAN CORPUSCULAR HGB CONC 32.7 g/dL (31-35); MEAN CORPUSCULAR VOLUME 87.8 fL (81-99); MONOCYTES # (AUTO) 1.1 (0.2-0.8); NEUTROPHILS % 54.2 % (38.7-80.0); PLATELET COUNT 220 x10e3/uL (140-360)
[2020-11-04 01:45] LABS: INR 0.89; PROTHROMBIN TIME 12.6 seconds (11.9-14.5)
[2020-11-04 01:46] LABS: PARTIAL THROMBOPLASTIN TIME 26.7 seconds (23.8-35.5)
[2020-11-04 01:51] LABS: CLARITY,URINE CLOUDY (CLEAR); COLOR,URINE AMBER (YELLOW); KETONES,URINE 1+ (NEGATIVE); LEUKOCYTE ESTERASE ,URINE NEGATIVE (NEGATIVE); NITRITE,URINE POSITIVE (NEGATIVE); PROTEIN,URINE DIPSTICK >=300 (NEGATIVE); URINE UROBILINOGEN 1 mg/dL (0.2 - 1)
[2020-11-04 01:55] LABS: ALANINE AMINOTRANSFERASE 13 IU/L (0-55); ALBUMIN 3.6 g/dL (3.5-5.0); ALBUMIN/GLOBULIN RATIO 1.2 (0.8-2.0); ALKALINE PHOSPHATASE 64 IU/L (40-150); ANION GAP 15.2 mmol/L (8-16); BLOOD UREA NITROGEN 20 mg/dL (7-26); BUN/CREATININE RATIO 17 (6-25); CALCIUM 8.3 mg/dL (8.4-10.2); CARBON DIOXIDE 24 mmol/L (22-29); CHLORIDE 104 mmol/L (98-107); CREATININE, SERUM 1.18 mg/dL (0.72-1.25); EST GLOMERULAR FILTRATION RATE > 60 ML/MIN (60-); GLUCOSE 82 mg/dL (74-118); POTASSIUM 4.2 mmol/L (3.5-5.1); SODIUM 139 mmol/L (136-145)
[2020-11-04 01:57] LABS: BACTERIA,URINE MODERATE /HPF; EPITHELIAL CELLS,URINE FEW /LPF; RBC,URINE >50 /HPF (0-5)
== END 2020-11-04 02:18 | disposition home or self-care (01) ==
LOC: ER 01:19
DX: R31.9 Hematuria, unspecified (principal); N39.0 Urinary tract infection, site not specified; I10 Essential (primary) hypertension; E78.5 Hyperlipidemia, unspecified
CPT/HCPCS: 36415; 80053; 81001; 85025; 85610; 85730; 87086; 99282

== ENCOUNTER 2022-02-11 01:07 | Emergency (ER) | payer MEDICARE ==
[~2022-02-11] VITALS: Ht 177.8 cm; Wt 104.3 kg
[2022-02-11] MEDS ORDERED: FLOMAX0.4 MG PO (01:46)
[2022-02-11 02:11] LABS: CLARITY,URINE CLEAR (CLEAR); COLOR,URINE YELLOW (YELLOW); KETONES,URINE NEGATIVE (NEGATIVE); LEUKOCYTE ESTERASE ,URINE NEGATIVE (NEGATIVE); NITRITE,URINE NEGATIVE (NEGATIVE); PROTEIN,URINE DIPSTICK NEGATIVE (NEGATIVE); URINE UROBILINOGEN 0.2 mg/dL (0.2 - 1)
[2022-02-11 02:24] LABS: BACTERIA,URINE RARE /HPF; EPITHELIAL CELLS,URINE FEW /LPF; RBC,URINE 0-5 /HPF (0-5)
[2022-02-11] MEDS ORDERED: CEFDINIR300 MG PO (02:31)
== END 2022-02-11 02:59 | disposition home or self-care (01) ==
LOC: ER 01:15
DX: R33.9 Retention of urine, unspecified (principal); R10.30 Lower abdominal pain, unspecified; I10 Essential (primary) hypertension; E78.5 Hyperlipidemia, unspecified
CPT/HCPCS: 51700; 81001; 99283

== ENCOUNTER 2022-07-31 06:36 | Observation (INO) | payer MEDICARE ==
[~2022-07-31] VITALS: Ht 177.8 cm; Wt 104.3 kg
[~2022-07-31 06:36] MED LIST changes: +ATORVASTATIN CA20 MG PO; +CEFDINIR300 MG PO; +CENTRUM ADULTS1 EACH PO; +CETIRIZINE HCL10 MG PO; +COQ-1030 MG PO; +FINASTERIDE5 MG PO; +FLOMAX0.4 MG PO; +LISINOPRIL5 MG PO; +MYSOLINE50 MG PO; +OMEPRAZOLE40 MG PO
[2022-07-31] MEDS ORDERED: DEXAMETHASONE SOD PHOS 10 MG/1 ML VIAL ONE (06:50)
[2022-07-31] MEDS ORDERED: CELECOXIB 200 MG CAP ONE (06:50)
[2022-07-31] MEDS ORDERED: GABAPENTIN 300 MG CAP ONE (06:51)
[2022-07-31] MEDS ORDERED: CEFAZOLIN SODIUM 2 GM ONE (06:51)
[2022-07-31] MEDS ORDERED: BUPIVACAINE HCL 0.5% INJ 30 ML VIAL INJ ONE (08:34)
[2022-07-31] MEDS ORDERED: Vancomycin IV 1,000 MG ONE (09:08)
[2022-07-31] MEDS ORDERED: TRANEXAMIC ACID 20 ML ONE (09:08)
[2022-07-31] MEDS ORDERED: SODIUM CHLORIDE 0.9% 500ML 500 ML ONE (09:08)
[2022-07-31] MEDS ORDERED: DOCUSATE SODIUM 100 MG CAP PO PRN (11:30)
[2022-07-31] MEDS ORDERED: ACETAMINOPHEN 650 MG SUPP PR PRN (11:30)
[2022-07-31] MEDS ORDERED: HYDROCODONE/APAP 5MG-325MG TAB PO PRN (11:30)
[2022-07-31] MEDS ORDERED: ONDANSETRON HCL INJ 2MG/ML 2ML 2 MG/ML VIAL IV PRN (11:30)
[2022-07-31] MEDS ORDERED: HYDROCODONE/APAP 7.5MG-325MG 1 EA TAB PO PRN (11:30)
[2022-07-31] MEDS ORDERED: SODIUM CHLORIDE 0.9% 1000ML 1,000 ML IV SCH (11:30)
[2022-07-31] MEDS ORDERED: ZOLPIDEM TARTRATE 5 MG TAB PO PRN (11:30)
[2022-07-31] MEDS ORDERED: DIPHENHYDRAMINE HCL INJ 50 MG/ML VIAL IV PRN (11:30)
[2022-07-31] MEDS ORDERED: FENTANYL CITRATE/PF 100MCG/2 ML INJ ONE ×3 (11:43→13:23)
[2022-07-31] MEDS ORDERED: MIDAZOLAM HCL 2 MG/2 ML VIAL ONE (13:23)
[2022-07-31] MEDS ORDERED: PROPOFOL IV EMULSION 10 MG/ML 20 ML VIAL ONE (13:42)
[2022-07-31] MEDS ORDERED: SEVOFLURANE INHAL SOLN 250 ML PEN BTL ONE (13:42)
[2022-07-31] MEDS ORDERED: ONDANSETRON HCL INJ 2MG/ML 2ML 2 MG/ML VIAL ONE (13:42)
[2022-07-31] MEDS ORDERED: POVIDONE IODINE 0.05% 0.05 % ML PO ONE (13:42)
[2022-07-31] MEDS ORDERED: GLYCOPYRROLATE INJ 0.2 MG/ML VIAL ONE (13:42)
[2022-07-31] MEDS ORDERED: LIDOCAINE HCL 2% LOCAL INJ 5 ML SDV VIAL INJ ONE (13:42)
[2022-07-31] MEDS ORDERED: ACETAMINOPHEN 1000 MG/100 ML IV PRN (15:00)
[2022-07-31] MEDS ORDERED: CELECOXIB 200 MG CAP PO SCH (17:00)
[2022-07-31 17:18] VITALS: BP 105/58
[2022-07-31] MEDS ORDERED: ENOXAPARIN SOD INJ 40 MG/0.4 ML SYR SC SCH (21:00)
== END 2022-07-31 18:05 | disposition home or self-care (01) ==
LOC: OR 06:36 → PACU V 11:18 → IMCU 12:15
PROVIDERS: ADMIT Specialist; ATTEND Specialist
DX: M17.12 Unilateral primary osteoarthritis, left knee (principal); N40.0 Benign prostatic hyperplasia without lower urinary tract symptoms; K21.9 Gastro-esophageal reflux disease without esophagitis; Z79.899 Other long term (current) drug therapy; Z20.822 Contact with and (suspected) exposure to COVID-19; Z01.818 Encounter for other preprocedural examination; I10 Essential (primary) hypertension
CPT/HCPCS: 0223U; 27447; 36415; 71046; 73560; 86850; 86900; 86920; 94799; 97110; 97116; 97161; 97530; C1713 ×2; C1776 ×4; G0378; J0171; J1100; J2001; J2250; J2405; J2704; J2795; J3010; J3370; J7040